=== PATIENT | male | born 1935 | race Caucasian/White ===

== ENCOUNTER 2017-02-22 20:47 | Inpatient (IN) | payer MEDICARE, SELFPAY ==
[2017-02-22] VITALS (10 sets, daily range): BP systolic 163–206; BP diastolic 80–95; PULSE 44–61; RESP 13–16; TEMP 36.6–36.7; O2SAT 94–97; BMI 24.7; BMI 25.0
--- NOTE | 2017-02-22 20:55 | CT_ITS ---
STUDY: CT BRAIN WITHOUT CONTRAST REASON FOR EXAM: Male, 81 years old. CVA RADIATION DOSAGE (If Supplied By Facility): CTDIvol = ( 44.99 ) mGy, DLP = ( 812.98 ) mGycm TECHNIQUE: Transaxial CT imaging of the brain was performed without administration of intravenous contrast material. Individualized dose optimization techniques were used for this CT. COMPARISON: None. FINDINGS: Normal soft tissue structures. Normal calvarium. Mild atrophy and periventricular white matter ischemic changes.. Normal basal ganglia and thalami. Normal brainstem. Normal cerebellum. There is no intracranial hemorrhage. There are no findings of an acute ischemic infarction. Normal visualized paranasal sinuses. CT/Brain/Head without Contrast IMPRESSION: Mild atrophy and periventricular white matter ischemic changes. No evidence for acute bleed. If concern for acute infarct MRI recommended. Electronically Signed: Calvin Friend MD at 21:34 EST , Service support ,
--- NOTE | 2017-02-22 20:55 | EKG12_ITS ---
Test Reason : ALTERED LOC Blood Pressure : / mmHG Vent. Rate : 046 BPM Atrial Rate : 046 BPM P-R Int : 194 ms QRS Dur : 098 ms QT Int : 506 ms P-R-T Axes : 043 036 073 degrees QTc Int : 442 ms Sinus bradycardia Inferior infarct , age undetermined Abnormal ECG Confirmed by JUAN ALBERTO DAVIDSON, CELESTE ([id number]), editor managing newspaper DAISY FOLEY ([id number]) on 02/25/2017 1:48:29 PM Referred By: DR LI Confirmed By:CELESTE AVENDANO MD
--- NOTE | 2017-02-22 20:55 | RAD_ITS ---
STUDY: X-RAY CHEST REASON FOR EXAM: Male, 81 years old. Altered level of consciousness TECHNIQUE: AP portable COMPARISON: None. FINDINGS: Mild bilateral perihilar interstitial thickening but no focal lobar infiltration. There is no demonstrated pleural abnormality. Borderline cardiomegaly. Normal mediastinum and victorino. Normal visualized pulmonary arteries. Tortuous aortic arch and descending thoracic aorta. Normal visualized thoracic spine. Normal visualized ribs, clavicles, and shoulders. There is no demonstrated abnormality of the visualized soft tissue structures of the upper abdomen. RAD/Chest 1 View IMPRESSION: No acute cardiopulmonary pathology. Electronically Signed: Calvin Friend MD at 21:36 EST , Service support ,
[2017-02-22 21:01] LABS: Bedside Glucose 143 mg/dL (70-110)
[2017-02-22 21:02] LABS: Absolute Neutrophil Count 3.8 X10^3/uL (2.0-7.7); Basophil# 0.04 X10^3/uL; Basophil% 0.6 % (0-1); Eosinophil# 0.34 X10^3/uL; Eosinophils% 4.7 % (0-5); Hematocrit 43.5 % (40-54); Hemoglobin 14.3 g/dl (13.0-16.5); Mean Corp Hgb Conc 32.9 g/gl (32-36); Mean Corpuscular Volume 94.2 fL (80-94); Mean Platelet Vol. 10.7 fl (6.2-12.0); Monocyte# 0.44 X10^3/uL; Monocyte% 6.1 % (0-10); Neutrophil # 3.79 X10^3/uL (2.7-7.7); Neutrophil % 52.5 % (47-70); POSITIVE COUNT NO; POSITIVE DIFFERENTIAL NO; POSITIVE MORPHOLOGY NO; Platelet Count 238 K/mm3 (150-450); RBC Distribution Width CV 13.5 % (11.6-14.6); RBC Distribution Width SD 46.3 fl (35.1-43.9); Red Blood Count 4.62 M/mm3 (4.6-6.2); White Blood Count 7.2 K/mm3 (4.4-11.0)
[2017-02-22 21:10] LABS: Prothrombin Time (Protime)PT. 13.2 SECONDS (11.7-14.9)
[2017-02-22 21:11] LABS: Partial Thromboplast Time 30.1 Seconds (24.1-36.2)
[2017-02-22 21:19] LABS: Anion Gap 8 (5-15); BUN 22 mg/dL (7-18); BUN/Creat Ratio 16.7 RATIO (10-20); Calcium,Total 9.3 mg/dL (8.5-10.1); Chloride 106 mmol/L (98-107); Creatinine, Serum 1.32 mg/dL (0.70-1.30); EST Glomerular Filtration Rate 55 mL/min (>60); Est Glom Filt Rate - Afr Amer 67 mL/min (>60); Estimated Creatinine Clearance 45.95 ml/min; Glucose 137 mg/dL (70-110); Potassium 4.1 mmol/L (3.5-5.1); Sodium Level 142 mmol/L (136-145)
--- NOTE | 2017-02-22 21:27 | ED.VISSUMM ---
- ER Visit Summary Date of Service: 02/22/17 Chief Complaint: Confusion History of Present Illness: The patient is a 81 M since to the emergency department confusion. The patient was at a friend's house he apparently was having some nonsensical speech. He left the friend's house and went home. His son called him and realized he was not making any sense on the phone. He went to his house and the patient continued to have this confusion where his speech did not make sense. They deny any weakness. The patient does have a history of prior stroke but had no recurrent deficits. He has been in his normal state of health. He does smoke. Squad was called and the patient is brought in. It is hard to gather any history from the patient given his difficulty with speech. Physical Examination: Vital signs reviewed General: Well-nourished, well-developed Head: Normocephalic, atraumatic Eyes: Pupils equal and reactive, extraocular muscles intact Neck, supple, no lymphadenopathy Heart: Regular rate and rhythm Respiratory: No distress, clear bilaterally Abdomen: Soft, nontender, nondistended, no peritoneal signs Back: Nontender Extremities: Nontender, no edema, no cords Skin: Normal color no rash Neuro: Alert and oriented, no focal or lateralizing deficits, patient does have expressive aphasia with word salad, NIH is 3 Test Results: Head CT shows no acute abnormalities. Screening labs relatively unremarkable. EKG shows sinus bradycardia. Emergency Department Course and Treatment: The patient has difficulties with fluency of speech. It does appear as if he has an expressive aphasia. His NIH is 3. Stroke team was not activated given NIH of 3 and unclear etiology of onset time. Within 30 minutes, his aphasia has mildly improved to give him a score of 2. His CT does not show an acute bleed. Based on the patient's age and market risk factors, I do feel he is can require admission for MRI and further neurologic workup. Patient was discussed with the hospitalist. Treatment Plan: [] Disposition: Admission Impression: 1. Moderate expressive aphasia This note was generated with [employer] dictation software. It may contain incorrect words, spelling, and punctuation that were not noted in review of the chart prior to signing ED Disposition - Plan for ED Patient: Chief Complaint: Alt LOC Referrals: Mike Henriquez DO [Primary Care Provider] -
--- NOTE | 2017-02-22 21:28 | NURSING ---
SON AND DAUGHTER N LAW DON'T KNOW PATIENT'S LAST KNOWN WELL. THEY ALSO DON'T KNOW PATIENT'S ALLERGIES OR MEDICATIONS.
--- NOTE | 2017-02-22 21:44 | NURSING ---
DR. CHILDRESS MADE AWARE OF BP OF 206/81. HE ORDERED APRESOLINE 5 MG.
[2017-02-22] MEDS: Acetaminophen 500 MG Tablet 1000 MG PO (22:08)
--- NOTE | 2017-02-22 22:32 | NURSING ---
DR HILLIARD IN ROOM
--- NOTE | 2017-02-22 23:10 | NURSING ---
DR. HERNANDEZ WAS MADE AWARE THAT HIS BP IS 206/81, AND HE SAID THAT THEY WILL TREAT HIM ON THE FLOOR. DR. NEFF WAS ALSO MADE AWARE AND HE SAID HE PUT ORDERS FOR HIS BP RIGHT NOW TO GIVE ON THE FLOOR.
--- NOTE | 2017-02-22 23:17 | PCM.HP.STD ---
Problem List (1) Aphasia Status: Acute (2) H/O carotid endarterectomy Status: Acute (3) HTN (hypertension) Status: Chronic (4) THELMA (acute kidney injury) Status: Acute History of Present Illness Date of Admission: 02/22/17 Chief Complaint: Aphasia The patient is a 81 year old male w/ h/o carotid endarterectomy, HTN and CVA admitted for aphasia. Pt was at his friend's house when he had some nonsensical speech. He left his friend's house and drove home. His friend called his sister who then called his son. His son called him around 8:00PM and he did not make any sense on the phone. His son went to his house and squad was called to take him to the ED given that he was still confused. He does not comprehend speech. He cannot follow simple direction. He has a h/o prior stroke but no recent deficit. He also has h/o carotid endarterectomy. Nothing appeared to make his confusion better or worse. His confusion was not associated with any other symptoms. Past Medical History Past Medical History (Chronic Problems): Chronic Problems HTN (hypertension) (Chronic) Allergies No Known Allergies Allergy (Verified 02/22/17 21:34) Home Medications: Ambulatory Orders Medication Instructions Recorded NK [NK] 02/22/17 Lives: Alone Smoking Status: Current every day smoker Alcohol: None Drugs: None - *Family History Maternal History Items: No pertinent history Review of Systems Constitutional: Denies: Chills, Fever, Weight Change Eyes: Denies: Blurred vision, Cataracts HEENT: Denies: Head Aches, Sinus Congestion, Sinus Drainage Cardiovascular: Denies: Chest Pain, Palpitations Respiratory: Denies: Cough, Shortness of breath at rest, Sputum production Gastrointestinal: Denies: Abdominal Pain, Nausea, Vomiting Genitourinary: Denies: Dysuria Musculoskeletal: Denies: Joint Pain, Joint Tenderness Skin: Denies: Rash, Wounds Neurological: Reports: Change in Speech, Confusion. Denies: Focal weakness, Numbness, Tingling Psychiatric: Denies: Anxiety, Depression, Homicidal Ideations, Suicidal Ideations Hematologic/ Lymphatic: Denies: Easy Bruising, Easy Bleeding VTE Information - Inpt Only VTE Present on Admission: No VTE Mechan Device Prophylaxis: SCD's VTE Pharm Prophylaxis ordered?: Yes Patient Problems: Active and Suspected Problems Aphasia (Acute) H/O carotid endarterectomy (Acute) THELMA (acute kidney injury) (Acute) - Physical Exam General: Alert, Confused, Disoriented HEENT: Atraumatic, PERRLA, EOMI, Normocephalic Neck: Supple, No JVD, Negative Carotid Bruits Lungs: Clear to auscultation, Normal air movement Cardiovascular: Regular rate, No murmurs Abdomen: Bowel Sounds Present, Soft, Non Tender Extremities: No edema, Capillary Refill Less than 3 Seconds Skin: No rashes, No breakdown Musculoskeletal: No Tenderness to Palpation of Joints or Extremities Neurological: Cranial nerves II-XII grossly intact Psych/Mental Status: Normal Affect, Appropriate Vital Signs Temp Pulse Resp BP Pulse Ox 98.1 F 61 13 206/81 H 96 02/22/17 22:57 02/22/17 23:06 02/22/17 23:06 02/22/17 23:06 02/22/17 23:06 Oxygen Delivery Method Room Air Weight: 80.3 kg Body Mass Index (BMI) 24.7 Finger Stick Blood Glucose 143 Laboratory Tests Past 24 Hrs 02/22/17 02/22/17 02/22/17 20:45 20:45 20:45 WBC 7.2 RBC 4.62 Hgb 14.3 Hct 43.5 MCV 94.2 H MCH 31.0 MCHC 32.9 RDW 13.5 RDW Differential 46.3 H Plt Count 238 MPV 10.7 Immature Gran % (Auto) 0.100 Neut % (Auto) 52.5 Lymph % (Auto) 36.0 [place] % (Auto) 6.1 Eos % (Auto) 4.7 Baso % (Auto) 0.6 Absolute Neuts (auto) 3.8 Absolute Lymphs (auto) 2.60 Total Counted Not Reportable PT 13.2 INR 1.0 APTT 30.1 Sodium 142 Potassium 4.1 Chloride 106 Carbon Dioxide 28.0 Anion Gap 8 BUN 22 H Creatinine 1.32 H Estim Creat Clear Calc 45.95 Est GFR (MDRD) Af Amer 67 Est GFR (MDRD) Non-Af 55 L BUN/Creatinine Ratio 16.7 Glucose 137 H Calcium 9.3 Troponin I < 0.02 POC Glucose 02/22/17 20:55 POC Glucose 143 H Assessment/Plan Active and Suspected Problems Aphasia (Acute) H/O carotid endarterectomy (Acute) THELMA (acute kidney injury) (Acute) 81 year old male w/ h/o carotid endarterectomy, HTN and CVA admitted for aphasia. 1) Expressive aphasia: Pt does not appear to understand simple speech as well. CT unremarkable. Labs unremarkable. Will get MRI in AM. Will get carotid U/S. Will get ECHO. Will get statin and ASA. Will consult neuro. 2) Hypothyroid: Will start synthroid. TSH 9 noted. 3) HTN: Allow permissive HTN. PRN meds given. 4) H/o carotid endarterectomy and CVA: Supportive care. C/w meds. Carotid U/S in AM. 5) Prophylaxis: Heparin.
--- NOTE | 2017-02-22 23:24 | NURSING ---
EXPRESSIVE APHASIA TAWANDA U
--- NOTE | 2017-02-22 23:46 | ECHOD_ITS ---
Reason For Study: TIA/CVA Procedure This was a 2D Doppler, Color Flow transthoracic echocardiogram. Exam performed portable in patient room. Left Ventricle Normal LV size. The estimated ejection fraction is 50 %. Segmental dysfunction with preserved ejection fraction (see wall motion). Mid-anteroseptal : Hypokinetic. Mid-Anterior : Hypokinetic. Septal [place] : Akinetic. Anterior [place] : Hypokinetic. The rest of the wall segments are normal. Right Ventricle Normal RV size. Normal systolic function. Atria Normal left atrium. Normal right atrium. Intact atrial septum. Bubble contrast study negative for right to left interatrial shunt. Mitral Valve Normal mitral valve. Mild-Moderate (1-2+) eccentric mitral valve insufficiency. Tricuspid Valve Normal tricuspid valve. Mild to moderate (1-2+) tricuspid valve insufficiency. Pulmonary artery systolic pressure is 35 mmHg. Aortic Valve Trisinus/trileaflet aortic valve. Mild focal aortic valve thickening. Mild-Moderate (1-2+) eccentric aortic valve insufficiency. Pulmonic Valve Normal pulmonic valve. Great Vessels Mild to moderately dilated aortic root. The pulmonary artery is normal size. Normal inferior vena cava. Pericardium/Pleural No pericardial effusion. Medication Performed a rapid injection of agitated mix of 9 cc saline and 1cc air to assess for atrial septal defect. MMode/2D Measurements & Calculations LVIDd: 3.9 cm IVSd: 2.3 cm LVOT diam: 2.0 cm LVIDs: 2.3 cm LVPWd: 1.7 cm LVOT area: 3.0 cm2 RVDd: 3.2 cm FS: 40.3 % Ao root diam: 3.2 cm LAV(MOD-bp): 77.7 ml LVAd ap4: 35.8 cm2 LAV(MOD-bp) Indexed: 39.1 ml/m2 EDV(MOD-sp4): 107.2 ml LAV(MOD-sp2): 89.2 ml EDV(sp4-el): 112.3 ml LAV(MOD-sp4): 67.8 ml LVAs ap4: 24.6 cm2 ESV(MOD-sp4): 53.5 ml ESV(sp4-el): 55.2 ml EF(MOD-sp4): 50.1 % EF(sp4-el): 50.8 % SV(MOD-sp4): 53.8 ml SV(sp4-el): 57.1 ml LA A4 area: 23.3 cm2 RA A4 area: 16.2 cm2 Time Measurements MV dec time: 0.22 sec Doppler Measurements & Calculations MV E max saba: 108.7 cm/sec MV V2 max: 114.5 cm/sec MV P1/2t max saba: 113.9 cm/sec MV A max saba: 47.1 cm/sec MV max P.2 mmHg MV P1/2t: 147.3 msec MV E/A: 2.3 MV V2 mean: 46.1 cm/sec MV dec slope: 226.5 cm/sec2 MV mean P.1 mmHg MVA(P1/2t): 1.5 cm2 MV V2 VTI: 48.0 cm MVA(VTI): 1.8 cm2 Ao V2 max: 230.0 cm/sec AI max saba: 473.7 cm/sec LV V1 max: 127.3 cm/sec Ao max P.2 mmHg AI max P.7 mmHg LV V1 max P.5 mmHg Ao V2 mean: 141.7 cm/sec AI dec slope: 192.4 cm/sec2 LV V1 mean P.4 mmHg Ao mean P.4 mmHg AI P1/2t: 721.2 msec LV V1 mean: 69.4 cm/sec Ao V2 VTI: 50.5 cm LV V1 VTI: 28.0 cm LYNDON(I,D): 1.7 cm2 LYNDON(V,D): 1.7 cm2 SV(LVOT): 84.5 ml PA V2 max: 91.3 cm/sec TR max saba: 275.9 cm/sec TR max P.5 mmHg Interpretation Summary Normal LV size. The estimated ejection fraction is 50 %. Segmental dysfunction with preserved ejection fraction (see wall motion). Bubble contrast study negative for right to left interatrial shunt. Mild to moderately dilated aortic root. Mild-Moderate (1-2+) eccentric aortic valve insufficiency. Compared to prior study, changes are noted. Ordering Physician: Parvez Fuentes Referring Physician: Mike Henriquez Performed By: Marcos Warren RCS
--- NOTE | 2017-02-22 23:46 | MRI_ITS ---
STUDY: MRI BRAIN WITHOUT CONTRAST REASON FOR EXAM: Male, 81 years old. Slurred speech. TECHNIQUE: Standardized multiplanar fat and water weighted pulse sequences were obtained. COMPARISON: CT of the head dated February 22, 2017. FINDINGS: There is mild cerebral atrophy with widening of the extra-axial spaces and ventricular dilatation. There are a limited number of small white matter hyperintensities, distributed throughout the deep white matter tracts of the cerebral hemispheres, consistent with mild chronic white matter ischemic changes. There is confluent periventricular hyperintensity cloaking the lateral ventricles, consistent with periventricular leukoaraiosis. There is a restricted diffusion present within the left temporal lobe and left parietal lobe consistent with acute infarct. Normal T2* images of the brain without demonstrated susceptibility artifact. There is no demonstrated hemosiderin stain. There are prominent perivascular spaces (PVS) involving the basal ganglia. There are multiple foci of abnormal signal within the thalami that may represent sequela of previous infarcts. The largest is on the left. There is no extra-axial fluid accumulation. Normal flow voids within the major intracranial circulation suggesting patency by spin echo criteria. Normal sella turcica, pituitary gland, infundibular stalk, optic chiasm and hypothalamus. Normal tectal plate and pineal gland. Normal midbrain, james and medulla. Normal cerebellum. There are large basal cisterns. Normal bilateral temporal bones. Normal bilateral internal auditory canals. No demonstrated orbital abnormality, within the constraints of a routine brain study. There is mucoperiosteal inflammatory disease of the paranasal sinuses consistent with mild chronic sinusitis. Normal calvarium and skull base. Normal visualized soft tissue structures. There are degenerative changes of the anterior atlantoaxial articulation. MRI/Brain without Contrast IMPRESSION: 1. Involutional changes of the brain, as described above. 2. Acute left-sided middle cerebral artery territory infarct. N.B. : The above information has been verbally conveyed by Delfina Sparrow MD to NEHA Schwartz RN, Hospital- In-Patient RN, on 02/23/2017 15:43:46 (ET). Electronically Signed: Delfina Sparrow MD at 15:44 EST , Service support , N.B. : The above information has been verbally conveyed by Delfina Sparrow MD to NEHA Schwartz RN, Hospital- In-Patient RN, on 02/23/2017 15:43:46 (ET).
[2017-02-23] VITALS (13 sets, daily range): BP systolic 100–172; BP diastolic 59–71; PULSE 44–73; RESP 14–19; TEMP 36.8–37.1; O2SAT 95–100; BMI 25.1; BMI 25.0
[2017-02-23] MEDS: 0.9% NaCl Peripheral Flush Adult/Peds IV ×2 (00:20→13:04)
[2017-02-23] MEDS: 0.9% Normal Saline 1,000 ML 100 ML IV ×3 (00:23→13:03)
[2017-02-23 00:43] LABS: Thyroid Stim Hormone (TSH) 9.47 uIU/mL (0.358-3.74)
[2017-02-23 00:46] LABS: Bedside Glucose 144 mg/dL (70-110)
[2017-02-23] MEDS: Levothyroxine 25 MCG TABLET PO (04:57)
[2017-02-23 05:49] LABS: Amphetamine Urine VISTA NEGATIVE (<1000 ng/mL); Barbiturate Urine VISTA NEGATIVE (< 200 ng/mL); Benzodiazepine Urine VISTA NEGATIVE (< 200 ng/mL); Cocaine Urine VISTA NEGATIVE (< 300 ng/mL); Ecstacy Urine VISTA NEGATIVE (< 500 ng/mL); Methadone Urine VISTA NEGATIVE (< 300 ng/mL); PCP Urine VISTA NEGATIVE (< 25 ng/mL); THC Urine VISTA NEGATIVE (< 50 ng/mL); Vista UDS pH Range 7
--- NOTE | 2017-02-23 05:55 | MRI_ITS ---
STUDY: MRA OF THE HEAD WITHOUT CONTRAST REASON FOR EXAM: Male, 81 years old. Slurred speech. TECHNIQUE: 3-D [id number] (TOF) imaging was performed with MIPs. The study was performed unenhanced. COMPARISON: MRI the brain dated February 23, 2017. FINDINGS: Normal bilateral petrous carotid arteries. Normal right cavernous carotid artery with a normal supraclinoid bifurcation. 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 Normal right A1 segments of the anterior cerebral artery. There is hypoplastic development of the left A1 segment of the anterior cerebral arteries with an atretic but intact artery. Normal intact anterior communicating artery (ACOM). Normal bilateral A2 segments of the anterior cerebral arteries. There is irregularity of the right M1 and M2 branches with minimal luminal narrowing, suggesting atherosclerotic plaque formation, without an occlusion. There is irregularity of the left M1 and M2 branches with minimal luminal narrowing, suggesting atherosclerotic plaque formation, without an occlusion. There is non-visualization of the right posterior communicating artery (PCOM). There is a persistent origin of the left posterior cerebral artery with absence of the P1 segment of the left posterior cerebral artery. Neither intracranial vertebral artery is well seen. This may be related to small size, decreased blood flow or occlusion. The basilar artery is incompletely visualized suggesting possible partial thrombosis. The visualized intracranial vertebral arteries and basilar artery are also small size. The superior cerebellar arteries are not well seen. Normal bilateral P1, P2 and visualized P3 segments of the posterior cerebral arteries. There is no demonstrated aneurysm of the [place]. There are involutional changes of the brain. MRI/MRA Head ONLY without Contrast IMPRESSION: 1. Apparent partial thrombosis of the basilar artery and intracranial vertebral arteries versus decreased blood flow. 2. 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 Electronically Signed: Delfina Sparrow MD at 15:57 EST , Service support ,
[2017-02-23] MEDS: Aspirin 81 MG TAB.CHEW PO (08:39)
[2017-02-23 09:00] LABS: Absolute Lymphocyte Count 2.92 X10^3/ul (0.83-4.51); Absolute Neutrophil Count 4.4 X10^3/uL (2.0-7.7); Basophil# 0.05 X10^3/uL; Basophil% 0.6 % (0-1); Eosinophil# 0.28 X10^3/uL; Eosinophils% 3.4 % (0-5); Hematocrit 41.8 % (40-54); Lymphocyte # 2.92 X10^3/ul (4.0); Lymphocyte % 35.5 % (19-41); Mean Corp Hgb Conc 33.5 g/gl (32-36); Mean Corpuscular Volume 92.7 fL (80-94); Mean Platelet Vol. 11.1 fl (6.2-12.0); Monocyte# 0.58 X10^3/uL; Neutrophil # 4.38 X10^3/uL (2.7-7.7); Neutrophil % 53.3 % (47-70); Platelet Count 236 K/mm3 (150-450); RBC Distribution Width CV 13.1 % (11.6-14.6); RBC Distribution Width SD 43.6 fl (35.1-43.9); Red Blood Count 4.51 M/mm3 (4.6-6.2); White Blood Count 8.2 K/mm3 (4.4-11.0)
[2017-02-23 09:05] LABS: POSITIVE COUNT NO; POSITIVE DIFFERENTIAL NO; POSITIVE MORPHOLOGY NO
[2017-02-23 09:15] LABS: Anion Gap 9 (5-15); BUN 17 mg/dL (7-18); BUN/Creat Ratio 14.4 RATIO (10-20); Calcium,Total 8.8 mg/dL (8.5-10.1); Chloride 102 mmol/L (98-107); Cholesterol 239 mg/dL (200); Creatinine, Serum 1.18 mg/dL (0.70-1.30); EST Glomerular Filtration Rate 63 mL/min (>60); Est Glom Filt Rate - Afr Amer 76 mL/min (>60); Estimated Creatinine Clearance 49.84 ml/min; Glucose 158 mg/dL (70-110); High Density Lipoprotein 60 mg/dL; Sodium Level 136 mmol/L (136-145); Triglycerides 96 mg/dL; Very Low Density Lipoprotein 19 mg/dL (5-40)
--- NOTE | 2017-02-23 11:10 | MRI_ITS ---
STUDY: MRA NECK WITHOUT CONTRAST REASON FOR EXAM: Male, 81 years old. Slurred speech. TECHNIQUE: Source images were obtained, MIPs were performed. The study was performed unenhanced. Several images are limited by patient motion. COMPARISON: MRA of the head and MRI of the head dated February 23, 2017. FINDINGS: RIGHT CAROTID ARTERIES: The origin of the right common carotid artery is not imaged. The imaged right common carotid artery is generally patent. There is mild atherosclerotic plaque formation with minimal narrowing of the right carotid bulb. Normal origin of the right internal carotid (ICA) artery without a hemodynamically significant stenosis. Normal visualized cervical portion of the right internal carotid artery. Normal origin of the right external carotid artery (ECA). LEFT CAROTID ARTERIES: The origin of left common carotid artery is not imaged. The imaged left common carotid artery otherwise have generally normal course and caliber. There is mild atherosclerotic plaque formation with minimal narrowing of the left carotid bulb. Normal origin of the left internal carotid (ICA) artery without a hemodynamically significant stenosis. Normal visualized cervical portion of the left internal carotid artery. Normal origin of the left external carotid artery (ECA). VERTEBRAL ARTERIES: Both vertebral arteries are small in size but exhibit antegrade blood flow. MRI/MRA Neck without Contrast IMPRESSION: Technically limited study secondary to patient motion without definite hemodynamically significant stenosis. Electronically Signed: Delfina Sparrow MD at 16:19 EST , Service support ,
--- NOTE | 2017-02-23 11:33 | CASEMGMT ---
RN CM attempted to complete broadcast correspondent at this time. Patient is not in room and is currently at MRI. RN CM will attempt again later.
--- NOTE | 2017-02-23 14:30 | PCM.PROGNOTE ---
Patient Problems: Active and Suspected Problems Aphasia (Acute) H/O carotid endarterectomy (Acute) THELMA (acute kidney injury) (Acute) Subjective: Chief complaint: Follow-up after admission for expressive aphasia, incoherent speech and confusion, found to have elevated TSH. Patient seen and examined. No acute events overnight. He is talking out of his head, and coherent speech. He is confused and disoriented. Denied chest pain or shortness of breath. Denies focal weakness. Patient's son was at the bedside and he mentioned that this is all new to him since yesterday. Normally, he is alert and oriented ?3. He is afebrile, heart rate has been in the 50s, blood pressure has been fluctuating, pulse ox is 95% on room air. - Physical Exam General: Alert, No apparent distress, Confused, Disoriented HEENT: Atraumatic, PERRLA Oral: Moist Mucosa, No Gingival or Mucosal Lesions/ Ulcerations Neck: Supple, No JVD, Negative Carotid Bruits, Trachea Midline, Thyroid Normal Size and Texture Lungs: Clear to auscultation, No rhonchi, No wheeze, No rales, Diminished Cardiovascular: Regular rate, Regular Rhythm, Normal S1, Normal S2, PMI Normal, Bradycardic Abdomen: Bowel Sounds Present, Soft, Non Tender, Non-Distended, No Hepato-splenomegaly Extremities: No clubbing, No cyanosis, No edema Skin: No rashes, No breakdown Lymphatic: No Cervical, Supraclavicular, or Inguinal Adenopathy Neurological: Cranial nerves II-XII grossly intact, Motor Exam 5/5 strength throughout, - - Incoherent speech Psych/Mental Status: Flat Affect Vital Signs Temp Pulse Resp BP Pulse Ox 98.5 F 45 L 17 154/71 H 98 02/23/17 13:02 02/23/17 13:02 02/23/17 13:02 02/23/17 13:02 02/23/17 13:02 Oxygen Delivery Method Room Air Weight: 174 lb 9.698 oz Body Mass Index (BMI) 25.0 Intake and Output for Last 24 Hours 02/21/17 02/22/17 02/23/17 23:59 23:59 23:59 Intake Total 1546 / 1546 Output Total 300 / 300 Balance 1246 / 1246 Laboratory Tests Past 24 Hrs 02/23/17 02/23/17 02/23/17 00:13 00:13 05:00 WBC RBC Hgb Hct MCV MCH MCHC RDW RDW Differential Plt Count MPV Immature Gran % (Auto) Neut % (Auto) Lymph % (Auto) [place] % (Auto) Eos % (Auto) Baso % (Auto) Absolute Neuts (auto) Absolute Lymphs (auto) Total Counted Sodium Potassium Chloride Carbon Dioxide Anion Gap BUN Creatinine Estim Creat Clear Calc Est GFR (MDRD) Af Amer Est GFR (MDRD) Non-Af BUN/Creatinine Ratio Glucose Calcium Ammonia 24.0 Troponin I 0.02 Triglycerides Cholesterol LDL Cholesterol VLDL Cholesterol HDL Cholesterol TSH 9.47 H Urine Opiates Screen NEGATIVE Urine Methadone Screen NEGATIVE Ur Barbiturates Screen NEGATIVE Ur Phencyclidine Scrn NEGATIVE Ur Amphetamines Screen NEGATIVE U Methamphetamin-MDMA NEGATIVE U Benzodiazepines Scrn NEGATIVE Urine Cocaine Screen NEGATIVE U Cannabinoids Screen NEGATIVE Ur Drug Screen Comment 02/23/17 02/23/17 08:05 08:05 WBC 8.2 RBC 4.51 L Hgb 14.0 Hct 41.8 MCV 92.7 MCH 31.0 MCHC 33.5 RDW 13.1 RDW Differential 43.6 Plt Count 236 MPV 11.1 Immature Gran % (Auto) 0.200 Neut % (Auto) 53.3 Lymph % (Auto) 35.5 [place] % (Auto) 7.0 Eos % (Auto) 3.4 Baso % (Auto) 0.6 Absolute Neuts (auto) 4.4 Absolute Lymphs (auto) 2.92 Total Counted Not Reportable Sodium 136 Potassium 4.0 Chloride 102 Carbon Dioxide 25.0 Anion Gap 9 BUN 17 Creatinine 1.18 Estim Creat Clear Calc 49.84 Est GFR (MDRD) Af Amer 76 Est GFR (MDRD) Non-Af 63 BUN/Creatinine Ratio 14.4 Glucose 158 H Calcium 8.8 Ammonia Troponin I Triglycerides 96 Cholesterol 239 H LDL Cholesterol 160 H VLDL Cholesterol 19 HDL Cholesterol 60 TSH Urine Opiates Screen Urine Methadone Screen Ur Barbiturates Screen Ur Phencyclidine Scrn Ur Amphetamines Screen U Methamphetamin-MDMA U Benzodiazepines Scrn Urine Cocaine Screen U Cannabinoids Screen Ur Drug Screen Comment POC Glucose 02/23/17 00:09 POC Glucose 144 H Clinical Impression(s) from Imaging Studies Brain CT 02/22/17 20:55 IMPRESSION: Mild atrophy and periventricular white matter ischemic changes. No evidence for acute bleed. If concern for acute infarct MRI recommended. Electronically Signed: Calvni Friend MD at 21:34 EST , Service support , Chest X-Ray 02/22/17 20:55 IMPRESSION: No acute cardiopulmonary pathology. Electronically Signed: Calvin Friend MD at 21:36 EST , Service support , Assessment/Plan Active and Suspected Problems Aphasia (Acute) H/O carotid endarterectomy (Acute) THELMA (acute kidney injury) (Acute) This is an 81 years old male patient admitted because of incoherent speech, expressive aphasia and confusion with concern of TIA versus acute stroke. #1 accident with aphasia/incoherent speech/confusion: CT scan brain showed no acute infarction or hemorrhage. Patient remained confused with incoherent speech, intermittent expressive aphasia. EKG revealed normal sinus rhythm without acute ischemic changes or cardiac arrhythmias. He is on aspirin and statins. Blood pressure stable at this time. It was elevated earlier. Neurology consulted. 2D echocardiogram revealed ejection fraction of 50%, bubble contrast study that was negative for [id number]-me-[id number] shunt, mild to moderate dilated aortic root. MRI brain, MRA of the head and neck ordered, pending. Awaiting neurology recommendations. #2 mild dehydration: Admission creatinine was 1.32 and BUN was 22, has been on IV fluids and it came down to 1.18 today. Improved. #3 Hypertension: Blood pressure was highly elevated on admission. I did came down on the floor. We will allow permissive hypertension. Plan to DC IV labetalol as needed that was ordered. #4 newly diagnosed hypothyroidism: TSH was 9.47. Patient has been bradycardic which can be explained by hypothyroidism. Started on levothyroxine. #5 hyperglycemia: He is not diabetic. Plan: Hemoglobin A1c, Accu-Cheks q. before meals at bedtime. #6 history of CVA: With out significant residual deficit. Plan as above. #7 DVT prophylaxis: Subcu heparin. This note was generated with [employer] software. It may contain incorrect words, spelling, and punctuation that were not noted in checking the note before signing. Code Visit Inpatient E&M: 11894 Subs Hosp L2
--- NOTE | 2017-02-23 14:33 | PN_ITS ---
Patient Problems: Active and Suspected Problems Aphasia (Acute) H/O carotid endarterectomy (Acute) THELMA (acute kidney injury) (Acute) Subjective: Chief complaint: Follow-up after admission for expressive aphasia, incoherent speech and confusion, found to have elevated TSH. Patient seen and examined. No acute events overnight. He is talking out of his head, and coherent speech. He is confused and disoriented. Denied chest pain or shortness of breath. Denies focal weakness. Patient's son was at the bedside and he mentioned that this is all new to him since yesterday. Normally , he is alert and oriented ?3. He is afebrile, heart rate has been in the 50s, blood pressure has been fluctuating, pulse ox is 95% on room air. - Physical Exam General: Alert, No apparent distress, Confused, Disoriented HEENT: Atraumatic, PERRLA Oral: Moist Mucosa, No Gingival or Mucosal Lesions/ Ulcerations Neck: Supple, No JVD, Negative Carotid Bruits, Trachea Midline, Thyroid Normal Size and Texture Lungs: Clear to auscultation, No rhonchi, No wheeze, No rales, Diminished Cardiovascular: Regular rate, Regular Rhythm, Normal S1, Normal S2, PMI Normal, Bradycardic Abdomen: Bowel Sounds Present, Soft, Non Tender, Non-Distended, No Hepato- splenomegaly Extremities: No clubbing, No cyanosis, No edema Skin: No rashes, No breakdown Lymphatic: No Cervical, Supraclavicular, or Inguinal Adenopathy Neurological: Cranial nerves II-XII grossly intact, Motor Exam 5/5 strength throughout, - - Incoherent speech Psych/Mental Status: Flat Affect Vital Signs Temp Pulse Resp BP Pulse Ox 98.5 F 45 L 17 154/71 H 98 02/23/17 13:02 02/23/17 13:02 02/23/17 13:02 02/23/17 13:02 02/23/17 13:02 Oxygen Delivery Method Room Air Weight: 174 lb 9.698 oz Body Mass Index (BMI) 25.0 Intake and Output for Last 24 Hours 02/21/17 02/22/17 02/23/17 23:59 23:59 23:59 Intake Total 1546 / 1546 Output Total 300 / 300 Balance 1246 / 1246 Laboratory Tests Past 24 Hrs 02/23/17 02/23/17 02/23/17 00:13 00:13 05:00 WBC RBC Hgb Hct MCV MCH MCHC RDW RDW Differential Plt Count MPV Immature Gran % (Auto) Neut % (Auto) Lymph % (Auto) [place] % (Auto) Eos % (Auto) Baso % (Auto) Absolute Neuts (auto) Absolute Lymphs (auto) Total Counted Sodium Potassium Chloride Carbon Dioxide Anion Gap BUN Creatinine Estim Creat Clear Calc Est GFR (MDRD) Af Amer Est GFR (MDRD) Non-Af BUN/Creatinine Ratio Glucose Calcium Ammonia 24.0 Troponin I 0.02 Triglycerides Cholesterol LDL Cholesterol VLDL Cholesterol HDL Cholesterol TSH 9.47 H Urine Opiates Screen NEGATIVE Urine Methadone Screen NEGATIVE Ur Barbiturates Screen NEGATIVE Ur Phencyclidine Scrn NEGATIVE Ur Amphetamines Screen NEGATIVE U Methamphetamin-MDMA NEGATIVE U Benzodiazepines Scrn NEGATIVE Urine Cocaine Screen NEGATIVE U Cannabinoids Screen NEGATIVE Ur Drug Screen Comment 02/23/17 02/23/17 08:05 08:05 WBC 8.2 RBC 4.51 L Hgb 14.0 Hct 41.8 MCV 92.7 MCH 31.0 MCHC 33.5 RDW 13.1 RDW Differential 43.6 Plt Count 236 MPV 11.1 Immature Gran % (Auto) 0.200 Neut % (Auto) 53.3 Lymph % (Auto) 35.5 [place] % (Auto) 7.0 Eos % (Auto) 3.4 Baso % (Auto) 0.6 Absolute Neuts (auto) 4.4 Absolute Lymphs (auto) 2.92 Total Counted Not Reportable Sodium 136 Potassium 4.0 Chloride 102 Carbon Dioxide 25.0 Anion Gap 9 BUN 17 Creatinine 1.18 Estim Creat Clear Calc 49.84 Est GFR (MDRD) Af Amer 76 Est GFR (MDRD) Non-Af 63 BUN/Creatinine Ratio 14.4 Glucose 158 H Calcium 8.8 Ammonia Troponin I Triglycerides 96 Cholesterol 239 H LDL Cholesterol 160 H VLDL Cholesterol 19 HDL Cholesterol 60 TSH Urine Opiates Screen Urine Methadone Screen Ur Barbiturates Screen Ur Phencyclidine Scrn Ur Amphetamines Screen U Methamphetamin-MDMA U Benzodiazepines Scrn Urine Cocaine Screen U Cannabinoids Screen Ur Drug Screen Comment POC Glucose 02/23/17 00:09 POC Glucose 144 H Clinical Impression(s) from Imaging Studies Brain CT 02/22/17 20:55 IMPRESSION: Mild atrophy and periventricular white matter ischemic changes. No evidence for acute bleed. If concern for acute infarct MRI recommended. Electronically Signed: Calvin Friend MD at 21:34 EST , Service support , Chest X-Ray 02/22/17 20:55 IMPRESSION: No acute cardiopulmonary pathology. Electronically Signed: Calvin Friend MD at 21:36 EST , Service support , Assessment/Plan Active and Suspected Problems Aphasia (Acute) H/O carotid endarterectomy (Acute) THELMA (acute kidney injury) (Acute) This is an 81 years old male patient admitted because of incoherent speech, expressive aphasia and confusion with concern of TIA versus acute stroke. #1 accident with aphasia/incoherent speech/confusion: CT scan brain showed no acute infarction or hemorrhage. Patient remained confused with incoherent speech, intermittent expressive aphasia. EKG revealed normal sinus rhythm without acute ischemic changes or cardiac arrhythmias. He is on aspirin and statins. Blood pressure stable at this time. It was elevated earlier. Neurology consulted. 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 MRI brain, MRA of the head and neck ordered, pending. Awaiting neurology recommendations. #2 mild dehydration: Admission creatinine was 1.32 and BUN was 22, has been on IV fluids and it came down to 1.18 today. Improved. #3 Hypertension: Blood pressure was highly elevated on admission. I did came down on the floor. We will allow permissive hypertension. Plan to DC IV labetalol as needed that was ordered. #4 newly diagnosed hypothyroidism: TSH was 9.47. Patient has been bradycardic which can be explained by hypothyroidism. Started on levothyroxine. #5 hyperglycemia: He is not diabetic. Plan: Hemoglobin A1c, Accu-Cheks q. before meals at bedtime. #6 history of CVA: With out significant residual deficit. Plan as above. #7 DVT prophylaxis: Subcu heparin. This note was generated with [employer] software. It may contain incorrect words, spelling, and punctuation that were not noted in checking the note before signing. Code Visit Inpatient E&M: 74213 Subs Hosp L2
--- NOTE | 2017-02-23 14:33 | CASEMGMT ---
BIENVENIDO met with patient's son Vicente, his sister Birdie, and some other family members. Patient was sleeping. Patient normally lives alone in a 2 story home. Per his son he does not think patient has any equipment at home. Patient's son said patient is very stubborn. He does not take any medications. They are unsure of d/c plan at this time. Family has been discussing someone going and staying with him for awhile. BIENVENIDO told them BIENVENIDO and BRIANNA RYAN will follow and assist with d/c planning. D/C plan: undetermined Ly PEARL MSW
[2017-02-23 15:23] LABS: Hemoglobin A1c 9.3 % (4.2-6.3)
[2017-02-23 17:20] LABS: Bedside Glucose 196 mg/dL (70-110)
--- NOTE | 2017-02-23 17:35 | NURSING ---
REPORT GIVEN TO RECEIVING RN, BIANCA, AT [facility]. BIANCA TO CALL BACK WHEN ROOM IS BEING CLEANED. ELLIOTT REED
--- NOTE | 2017-02-24 13:02 | PCM.DC.SUM ---
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 #4 expressive aphasia/incoherent speech. - Secondary Discharge Diagnosis Chronic Problems HTN (hypertension) (Chronic) Hospital Course and Treatment Imaging Results: Clinical Impression(s) from Imaging Studies Brain CT 02/22/17 20:55 IMPRESSION: Mild atrophy and periventricular white matter ischemic changes. No evidence for acute bleed. If concern for acute infarct MRI recommended. Electronically Signed: Calvin Friend MD at 21:34 EST , Service support , Chest X-Ray 02/22/17 20:55 IMPRESSION: No acute cardiopulmonary pathology. Electronically Signed: Calvin Friend MD at 21:36 EST , Service support , Brain MRI 02/22/17 23:46 IMPRESSION: 1. Involutional changes of the brain, as described above. 2. Acute left-sided middle cerebral artery territory infarct. N.B. : The above information has been verbally conveyed by Delfina Sparrow MD to NEHA Schwartz RN, Hospital- In-Patient RN, on 02/23/2017 15:43:46 (ET). Electronically Signed: Delfina Sparrow MD at 15:44 EST , Service support , N.B. : The above information has been verbally conveyed by Delfina Sparrow MD to NEHA Schwartz RN, Hospital- In-Patient RN, on 02/23/2017 15:43:46 (ET). Head MRA 02/23/17 05:55 IMPRESSION: 1. Apparent partial thrombosis of the basilar artery and intracranial vertebral arteries versus decreased blood flow. 2. 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 Electronically Signed: Delfina Sparrow MD at 15:57 EST , Service support , Neck MRA 02/23/17 11:10 IMPRESSION: Technically limited study secondary to patient motion without definite hemodynamically significant stenosis. Electronically Signed: Delfina Sparrow MD at 16:19 EST , Service support , Operations: None Procedures: 2-D Echocardiogram, EKG Summary of Care Provided: The patient is a 81 year old M admitted because of confusion, incoherent speech and expressive aphasia and he was found to have acute left MCA infarction. Initial CT scan of the brain showed no acute infarction or hemorrhage. MRI of the brain revealed acute left MCA infarct. 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 MRA of the head revealed acute left MCA infarct. 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 Patient was treated with aspirin and statins. Neurology consulted and recommended transfer to tertiary care center for further management and treatment of the partial thrombosis of the basilar artery. Apart from expressive aphasia, patient had no motor focal deficit. His blood pressure was stable, slightly elevated. Routine blood work was unremarkable. EKG revealed normal sinus rhythm without acute ischemic changes. We will not able to assess the size of the left MCA stroke and that is why we did not start patient on IV anticoagulation. Neurology recommended to hold off using IV heparin at this time. I called the transfer center of [facility] for transfer and they accepted patient. Patient transferred to see [facility] neuro ICU in a stable medical condition. Home Medications: Medications to take at Discharge NK [NK] 02/22/17 Primary Care Physician: Mike Henriquez DO [Primary Care Provider] - Disposition: Acute care Hospital Minutes spent on discharge:: 34 Patient Condition:: Stable Meaningful Use Info Meaningful Use Diagnoses (Choose all that apply): Ischemic CVA - CVA Therapy Assessed for PT,OT and/or ST?: Yes - Ischemic Stroke Antithrombotic order at d/c?: Yes Dx of Atrial fib/flutter?: No Anticoagulant at discharge?: No Reason anticoagulant not ordered: Treatment not Indicated Statins at discharge?: Yes Primary Dx Acute Ischemic CVA?: Yes IV tPA ordered during stay?: No Reason IV t-PA not ordered: Treatment not Indicated Code Visit Inpatient E&M: 16258 Disch Hosp
--- NOTE | 2017-02-24 13:09 | DS.PCM_ITS ---
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 #4 expressive aphasia/incoherent speech. - Secondary Discharge Diagnosis Chronic Problems HTN (hypertension) (Chronic) Hospital Course and Treatment Imaging Results: Clinical Impression(s) from Imaging Studies Brain CT 02/22/17 20:55 IMPRESSION: Mild atrophy and periventricular white matter ischemic changes. No evidence for acute bleed. If concern for acute infarct MRI recommended. Electronically Signed: Calvin Friend MD at 21:34 EST , Service support , Chest X-Ray 02/22/17 20:55 IMPRESSION: No acute cardiopulmonary pathology. Electronically Signed: Calvin Friend MD at 21:36 EST , Service support , Brain MRI 02/22/17 23:46 IMPRESSION: 1. Involutional changes of the brain, as described above. 2. Acute left-sided middle cerebral artery territory infarct. N.B. : The above information has been verbally conveyed by Delfina Sparrow MD to NEHA Schwartz RN, Hospital- In-Patient RN, on 02/23/2017 15:43:46 (ET). Electronically Signed: Delfina Sparrow MD at 15:44 EST , Service support , N.B. : The above information has been verbally conveyed by Delfina Sparrow MD to NEHA Schwartz RN, Hospital- In-Patient RN, on 02/23/2017 15:43:46 (ET). Head MRA 02/23/17 05:55 IMPRESSION: 1. Apparent partial thrombosis of the basilar artery and intracranial vertebral arteries versus decreased blood flow. 2. 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 Electronically Signed: Delfina Sparrow MD at 15:57 EST , Service support , Neck MRA 02/23/17 11:10 IMPRESSION: Technically limited study secondary to patient motion without definite hemodynamically significant stenosis. Electronically Signed: Delfina Sparrow MD at 16:19 EST , Service support , Operations: None Procedures: 2-D Echocardiogram, EKG Summary of Care Provided: The patient is a 81 year old M admitted because of confusion, incoherent speech and expressive aphasia and he was found to have acute left MCA infarction. Initial CT scan of the brain showed no acute infarction or hemorrhage. MRI of the brain revealed acute left MCA infarct. 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 MRA of the head revealed acute left MCA infarct. 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 Patient was treated with aspirin and statins. Neurology consulted and recommended transfer to tertiary care center for further management and treatment of the partial thrombosis of the basilar artery. Apart from expressive aphasia, patient had no motor focal deficit. His blood pressure was stable, slightly elevated. Routine blood work was unremarkable. EKG revealed normal sinus rhythm without acute ischemic changes. We will not able to assess the size of the left MCA stroke and that is why we did not start patient on IV anticoagulation. Neurology recommended to hold off using IV heparin at this time. [place] [facility] [place] Patient transferred to see [facility] neuro ICU in a stable medical condition. Home Medications: Medications to take at Discharge NK [NK] 02/22/17 Primary Care Physician: Mike Henriquez DO [Primary Care Provider] - Disposition: Acute care Hospital Minutes spent on discharge:: 34 Patient Condition:: Stable Meaningful Use Info Meaningful Use Diagnoses (Choose all that apply): Ischemic CVA - CVA Therapy Assessed for PT,OT and/or ST?: Yes - Ischemic Stroke Antithrombotic order at d/c?: Yes Dx of Atrial fib/flutter?: No Anticoagulant at discharge?: No Reason anticoagulant not ordered: Treatment not Indicated Statins at discharge?: Yes Primary Dx Acute Ischemic CVA?: Yes IV tPA ordered during stay?: No Reason IV t-PA not ordered: Treatment not Indicated Code Visit Inpatient E&M: 91341 Disch Hosp
== END 2017-02-23 19:38 | disposition short-term general hospital (02) | DRG 66 ==
LOC: ED 21:34 → PCU 23:30
PROVIDERS: Admitting Provider Internal Medicine; Emergency Provider Emergency Medicine; Family Provider Family Medicine; PCP Family Medicine; Visit Provider Hospitalist
DX: I63.512 Cerebral infarction due to unspecified occlusion or stenosis of left middle cerebral artery (principal); R47.01 Aphasia; E86.0 Dehydration; I65.1 Occlusion and stenosis of basilar artery; F17.200 Nicotine dependence, unspecified, uncomplicated; I10 Essential (primary) hypertension; E03.9 Hypothyroidism, unspecified; R73.9 Hyperglycemia, unspecified; R29.703 NIHSS score 3; Z86.73 Personal history of transient ischemic attack (TIA), and cerebral infarction without residual deficits; I65.22 Occlusion and stenosis of left carotid artery; I77.819 Aortic ectasia, unspecified site
CPT/HCPCS: 36415; 70450; 70544; 70547; 70551; 71045; 80048; 80061; 80307; 82140; 82962; 83036; 84443; 84484; 85025; 85610; 85730; 92523; 93005; 93306; 97166; 97802; 99285; J7030; J7040; A4216

== ENCOUNTER → 2017-04-04 16:39 | Outpatient (CLI) | payer MEDICARE, SELFPAY ==
[2017-04-04 16:45] LABS: Mucous, Urine 0 SEEN /hpf (<or=2+); Squamous Epithelial Cells - UA 0 SEEN /hpf (0-5); White Blood Cells 0 SEEN /hpf (0-5)
--- NOTE | 2017-04-04 17:07 | RAD_ITS ---
STUDY: X-RAY - ABDOMEN/PELVIS REASON FOR EXAM: Male, 81 years old. Left upper quadrant pain TECHNIQUE: 2 views COMPARISON: None. FINDINGS: Normal visualized lung bases. There is an unremarkable bowel gas pattern. Mild colonic fecal retention. There is no demonstrated free abdominal air. The visualized liver, spleen and kidneys are grossly normal in size and morphology. Normal soft tissue structures. Mild degenerative vertebral changes. RAD/Abdomen Single View IMPRESSION: Mild fecal retention. No sign of bowel obstruction. Electronically Signed: Krish Rainey DO at 23:10 EST Tel [phone], Service support ,
[2017-04-04 17:43] LABS: Color, Urine Yellow (Yellow); Glucose, Dipstick Normal (Normal); Ketone-Dipstick 5 mg/dl (Negative); Leukocyte Esterase-Dipstick Negative /ul (Negative); Nitrite-Dipstick Negative (Negative); Occult Blood-Urine 50 /ul (Negative); Protein-Dipstick 30 mg/dl (Negative); Specific Gravity, Urine 1.015 (1.002-1.030); Urine Bilirubin Dipstick Negative (Negative); Urine Clarity Clear (Clear); Urine Urobilinogen 1 mg/dl (Normal)
[2017-04-04 17:51] LABS: ALB/GLOB Ratio 0.9 RATIO (0.9-2.4); AST(SGOT) 26 U/L (15-37); Absolute Lymphocyte Count 2.87 X10^3/ul (0.83-4.51); Absolute Neutrophil Count 3.8 X10^3/uL (2.0-7.7); Alanine Aminotransfer ALT/SGPT 29 U/L (16-61); Albumin, Serum 3.7 g/dL (3.2-5.0); Alkaline Phosphatase 86 U/L (45-117); Anion Gap 7 (5-15); BUN 24 mg/dL (7-18); BUN/Creat Ratio 16.9 RATIO (10-20); Basophil# 0.04 X10^3/uL; Basophil% 0.5 % (0-1); Calcium,Total 9.1 mg/dL (8.5-10.1); Chloride 102 mmol/L (98-107); Creatinine, Serum 1.42 mg/dL (0.70-1.30); EST Glomerular Filtration Rate 51 mL/min (>60); Eosinophil# 0.34 X10^3/uL; Eosinophils% 4.4 % (0-5); Est Glom Filt Rate - Afr Amer 61 mL/min (>60); Globulin 4.1 g/dL (2.2-4.2); Glucose 149 mg/dL (74-106); Hematocrit 40.8 % (40-54); Hemoglobin 13.4 g/dl (13.0-16.5); Lipase 157 U/L (73-393); Lymphocyte # 2.87 X10^3/ul (4.0); Mean Corp Hgb Conc 32.8 g/gl (32-36); Mean Corpuscular Hgb 30.6 pg (27.0-32.0); Mean Corpuscular Volume 93.2 fL (80-94); Mean Platelet Vol. 11.4 fl (6.2-12.0); Monocyte# 0.72 X10^3/uL; Monocyte% 9.3 % (0-10); Neutrophil # 3.77 X10^3/uL (2.7-7.7); Neutrophil % 48.7 % (47-70); Platelet Count 247 K/mm3 (150-450); Potassium 4.2 mmol/L (3.5-5.1); Protein, Total 7.8 g/dL (6.4-8.2); RBC Distribution Width SD 43.1 fl (35.1-43.9); Red Blood Count 4.38 M/mm3 (4.6-6.2); Sodium Level 139 mmol/L (136-145); White Blood Count 7.8 K/mm3 (4.4-11.0)
[2017-04-04 17:54] LABS: POSITIVE COUNT NO; POSITIVE DIFFERENTIAL NO; POSITIVE MORPHOLOGY NO
[2017-04-04 18:20] LABS: Bacteria RARE /hpf (None Seen); Red Blood Cells-Urine 5-10 SEEN /hpf (0-5)
== END ==
PROVIDERS: Family Provider Family Medicine; PCP Family Medicine; Visit Provider Family Medicine
DX: R10.12 Left upper quadrant pain (principal); I67.9 Cerebrovascular disease, unspecified; I69.391 Dysphagia following cerebral infarction; I69.315 Cognitive social or emotional deficit following cerebral infarction
CPT/HCPCS: 36415; 74018; 80053; 81001; 83690; 85025; 92507

== ENCOUNTER → 2017-04-17 13:00 | Outpatient (CLI) | payer MEDICARE, SELFPAY ==
--- NOTE | 2017-04-17 13:17 | CT_ITS ---
STUDY: CT ABDOMEN AND PELVIS WITH CONTRAST REASON FOR EXAM: Male, 81 years old. Abdominal pain, mid to left side. RADIATION DOSAGE (If Supplied By Facility): CTDIvol = ( 18.70 ) mGy, DLP = ( 910.57 ) mGycm TECHNIQUE: Transaxial images were obtained from the dome of the diaphragm to the symphysis pubis without oral contrast. 75mL ml of Isovue 300 contrast was administered. Sagittal and coronal images were reconstructed. Individualized dose optimization techniques were used for this CT. COMPARISON: Two AP supine views of the abdomen and pelvis April 04, 2017 FINDINGS: Mild to moderate elevation of the right diaphragm, etiology uncertain. Dependent changes in the inferior lung bases. The heart size is upper normal. There are calcifications at the aortic valve, and mild calcific plaquing of the distal descending thoracic aorta. Normal liver. The patent portal vein diameter is 15.5 mm. The gallbladder is contracted. Normal spleen. Normal pancreas. Normal bilateral adrenal glands. 3.5 x 2.05 x 1.9 cm cyst at the midpole of the right kidney. A 10 x 12 x 15 mm cortical cyst is seen in the anterior midpole. Rounded 9 mm low-density in the anterior left mid pole may be a cyst or small angiomyolipoma. No hydronephrosis. Normal visualized stomach. Normal small intestine. Normal colon. There is non-visualization of the appendix. There is diffuse, partially calcified atherosclerotic plaquing of the abdominal aorta and iliofemoral arteries, without a demonstrated aneurysm. Normal inferior vena cava. Normal retroperitoneum. Normal urinary bladder. The prostate gland is 5.5 x 4.35 x 4.0 cm (R51 cc), mildly indenting the floor of the urinary bladder. Normal abdominal wall. There are diffuse degenerative changes of the visualized spine, including posterior endplate osteophyte formation at L3-4 and L4-5. There are multiple invaginations of the opposing L4-5 vertebral endplates, consistent with benign Schmorl's nodes. One of the largest is 13 mm in diameter. Degenerative changes also seen in the bilateral sacroiliac joints and hips. CT/Abdomen/Pelvis WITH Contrast IMPRESSION: 1. No clear explanation for the patient's complaints. 2. The bowel is unremarkable without signs of obstruction. The appendix is not visualized. 3. Right renal cortical cysts, as well as 9 mm cyst or angiomyolipoma in the mid pole of the left kidney. No hydronephrosis. 4. Mildly enlarged prostate gland. 5. Diffuse, partially calcified atherosclerotic plaquing of the abdominal aorta and iliofemoral arteries. No demonstrated aneurysm. Calcifications also noted in the aortic valve. 6. Mild to moderate elevation of the right diaphragm, etiology uncertain. 7. Degenerative changes of the spine and pelvis, as described. Electronically Signed: Taz Velazquez MD at 19:03 EST , Service support ,
[2017-04-17 15:56] LABS: ALB/GLOB Ratio 0.8 RATIO (0.9-2.4); AST(SGOT) 34 U/L (15-37); Alanine Aminotransfer ALT/SGPT 40 U/L (16-61); Albumin, Serum 3.4 g/dL (3.2-5.0); Alkaline Phosphatase 83 U/L (45-117); Amylase 65 U/L (25-115); Anion Gap 9 (5-15); BUN 25 mg/dL (7-18); BUN/Creat Ratio 17.9 RATIO (10-20); Chloride 101 mmol/L (98-107); EST Glomerular Filtration Rate 51 mL/min (>60); Est Glom Filt Rate - Afr Amer 62 mL/min (>60); Glucose 293 mg/dL (74-106); Lipase 146 U/L (73-393); Potassium 4.3 mmol/L (3.5-5.1); Protein, Total 7.4 g/dL (6.4-8.2); Sodium Level 139 mmol/L (136-145)
== END ==
PROVIDERS: Visit Provider Internal Medicine
DX: R10.12 Left upper quadrant pain (principal); I67.9 Cerebrovascular disease, unspecified; I69.391 Dysphagia following cerebral infarction; I69.315 Cognitive social or emotional deficit following cerebral infarction
CPT/HCPCS: 36415; 74177; 80053; 82150; 83690; 92507; Q9967

== ENCOUNTER → 2017-06-24 14:18 | Outpatient (CLI) | payer MEDICARE, SELFPAY ==
[2017-06-24 15:09] LABS: Color, Urine Yellow (Yellow); Glucose, Dipstick Normal (Normal); Ketone-Dipstick Negative (Negative); Leukocyte Esterase-Dipstick Negative /ul (Negative); Nitrite-Dipstick Negative (Negative); Occult Blood-Urine Negative /ul (Negative); Protein-Dipstick 30 mg/dl (Negative); Specific Gravity, Urine 1.025 (1.002-1.030); Urine Bilirubin Dipstick Negative (Negative); Urine Clarity Clear (Clear); Urine Urobilinogen 1 mg/dl (Normal)
[2017-06-24 15:15] LABS: Red Blood Cells-Urine 0-5 SEEN /hpf (0-5); Squamous Epithelial Cells - UA 0-5 SEEN /hpf (0-5); White Blood Cells 0-5 SEEN /hpf (0-5)
[2017-06-24 15:16] LABS: Bacteria 1+ /hpf (None Seen); Hyaline Cast 0-5 SEEN /lpf (0-5); Mucous, Urine 1+ /hpf (<or=2+)
[2017-06-24 15:17] LABS: Absolute Lymphocyte Count 2.33 X10^3/ul (0.83-4.51); Absolute Neutrophil Count 4.1 X10^3/uL (2.0-7.7); Basophil# 0.06 X10^3/uL; Basophil% 0.8 % (0-1); Eosinophil# 0.19 X10^3/uL; Eosinophils% 2.6 % (0-5); Hematocrit 38.6 % (40-54); Hemoglobin 13.2 g/dl (13.0-16.5); Lymphocyte # 2.33 X10^3/ul (4.0); Lymphocyte % 31.8 % (19-41); Mean Corp Hgb Conc 34.2 g/gl (32-36); Mean Corpuscular Hgb 30.7 pg (27.0-32.0); Mean Corpuscular Volume 89.8 fL (80-94); Mean Platelet Vol. 11.1 fl (6.2-12.0); Monocyte# 0.68 X10^3/uL; Monocyte% 9.3 % (0-10); Neutrophil # 4.05 X10^3/uL (2.7-7.7); Neutrophil % 55.2 % (47-70); Platelet Count 219 K/mm3 (150-450); RBC Distribution Width CV 13.6 % (11.6-14.6); RBC Distribution Width SD 44.2 fl (35.1-43.9); White Blood Count 7.3 K/mm3 (4.4-11.0)
[2017-06-24 15:18] LABS: Differential Indicated SCAN CRITERIA MET; POSITIVE COUNT NO; POSITIVE DIFFERENTIAL NO; POSITIVE MORPHOLOGY YES
[2017-06-24 15:45] LABS: ALB/GLOB Ratio 0.8 RATIO (0.9-2.4); AST(SGOT) 25 U/L (15-37); Alanine Aminotransfer ALT/SGPT 23 U/L (16-61); Albumin, Serum 3.2 g/dL (3.2-5.0); Alkaline Phosphatase 65 U/L (45-117); Anion Gap 9 (5-15); BUN 37 mg/dL (7-18); Calcium,Total 8.8 mg/dL (8.5-10.1); Chloride 104 mmol/L (98-107); Creatinine, Serum 1.85 mg/dL (0.70-1.30); EST Glomerular Filtration Rate 37 mL/min (>60); Est Glom Filt Rate - Afr Amer 45 mL/min (>60); Globulin 4.1 g/dL (2.2-4.2); Glucose 139 mg/dL (74-106); Protein, Total 7.3 g/dL (6.4-8.2); Sodium Level 136 mmol/L (136-145); Thyroid Stim Hormone (TSH) 6.21 uIU/mL (0.358-3.74)
[2017-06-24 16:07] LABS: Anisocytosis RARE; Platelet Estimate ADEQUATE (ADEQ)
== END ==
PROVIDERS: Family Provider Family Medicine; PCP Family Medicine; Visit Provider Internal Medicine
DX: R53.1 Weakness (principal); R04.2 Hemoptysis
CPT/HCPCS: 36415; 80053; 81001; 84443; 85025

== ENCOUNTER → 2017-06-28 11:04 | Outpatient (CLI) | payer MEDICARE, SELFPAY ==
--- NOTE | 2017-06-28 11:10 | RAD_ITS ---
STUDY: X-RAY CHEST REASON FOR EXAM: Male, 82 years old. Blood-tinged sputum. TECHNIQUE: PA and lateral views of the chest. COMPARISON: 02/22/2017. FINDINGS: The lungs are clear and expanded. There is no demonstrated pleural abnormality. Normal size heart. Normal mediastinum and victorino. Normal visualized pulmonary arteries. There is atherosclerotic tortuosity of the aortic arch and descending thoracic aorta. There are degenerative changes of the visualized thoracic spine. There is mild degenerative osteoarthritis of the bilateral shoulders. There is no demonstrated abnormality of the visualized soft tissue structures of the upper abdomen. RAD/Chest PA and Lateral IMPRESSION: No active pulmonary disease. Electronically Signed: Orestes Howard MD at 8:36 EDT Tel , Service support ,
== END ==
PROVIDERS: Family Provider Internal Medicine; PCP Internal Medicine; Visit Provider Internal Medicine
DX: R04.2 Hemoptysis (principal)
CPT/HCPCS: 71046

== ENCOUNTER 2017-07-18 09:30 | Outpatient (RCR) | payer MEDICARE, SELFPAY ==
--- NOTE | 2017-03-27 13:18 | HP.SP.AD ---
History - History Date of Eval: 03/26/17 Medical Diagnosis (from RX): CVA Date of Onset of Diagnosis: 02-22-17 Previous speech therapy: No Results: Home health but very limited to dc from . Other Relevant Medical History/Diagnoses/Surgery: PRevious CVA five years ago. A fib, DM2, HTN, sleep apnea, Smoking Status: Former smoker Hx Smoking: Yes - off and on Hx Tobacco Use: Yes - Pain Is pain an issue with your current prescribed condition?: No - Personal Right Hearing Abillity: Hard of Hearing Left Hearing Abillity: Hard of Hearing Patients Living Arrangements: son lives with him but not often avaliable per [facility] Patient Allergies - Allergies Allergies No Known Allergies Allergy (Verified 02/22/17 21:34) Objective Cog/Ling/Com - Test Administered Lksyclmkz-Nassqbodkf-Onimxudqeqrte Assessment Administered: Yes Ygxfuxcui-Saiwsrowba-Esykoppnicgat Assessment: Cognitive Linguistic skills were evaluated using patient/family interview, skilled observation and informal evaluation through tasks completed by the patient. - Orientation Orientation: Person - Identification Body parts/objects: Severe - Answer Yes/No Questions Simple: Severe Complex: Severe - Follows Commands 1 Step: Severe - Automatic Sequences Automatic Sequences: WFL - Repetition Words: Severe - Naming Responsive naming: Severe - Conversational Tasks Conversational Tasks: Severe Comments: There are fluent sentences intermixed with random paraphasias. - Comments Comments: OVerall he is only able to be understood aproximately 30% of the time. - Oral Reading Words: Severe Phrases: Severe Comments: Patient is unable to read anything at this time. Plan - Plan Plan: Speech therapy is warranted for severe receptive and expressive aphasia which is affecting his ability to communicate wants and needs effectively. - Recommendations Treatment Warranted: Yes - Frequency Frequency: 2x /Week Duration: 2 Months Visits in this POC: 16 - Prognosis Prognosis: Good - Goals that are Established: Determination:: Goals will be added/modified as deemed necessary and appropriate. Therapy will be discontinued when results of re-evaluation indicate therapy is no longer needed or lack of progress has been documented. - Goal #1-5 Goal #1: Bradley will follow 1 step commands on 4/5 trials with minimal cues. Goal #2: Bradley will answer basic yes/ no questions on 4/5 trials with minimal cues. Goal #3: Bradley will label objects/pictures on 4/5 trials with minimal cues. Education - Patient has Indicated that the Following Identified Educational Needs: None The Patient has indicated that they have no educational or learning abilities that may effect their care.: Yes - Patient Instruction Patient Education: Diagnosis, Treatment Plan, Goals, Safety Precautions Person Taught: Patient, Family Teaching Method: Discussion Response to teaching: Verbalize understanding
--- NOTE | 2017-03-27 14:56 | HP.OTEVAL_ITS ---
Patient's Visit Information SILVESTRE BARTH is a 81 year old M, referred to Occupational Therapy by Mike Henriquez DO,, with a diagnosis of CVA. Date of Evaluation: 03/27/17 Occupational Therapist: Michelle Silva - Subjective Subjective: Pt seen for initial occupational therapy evaluation after suffering CVA 02/22/17. Pt demonstrates global aphasia. His son lives with him at home and his sisters have been checking in on him daily since CVA. Prior, pt was independent with all BADLs/IADLs and still driving. He is a very active man. Pt has been recieving home health OT/PT/ST. - Objective Objective/Observation: Pt demo global aphasia and increased frustration that he is unable to communicate with therapist. Pt demo good upper body strength and ability to complete BADLs. Pt demo decreased safety and use of energy conservation and compensatory strategies to assist w/ IADLs. - ROM ROM Comments: WFL all joints BUE - Strength Shoulder: 4+/5 Elbow: 4+/5 Forearm: 4+/5 Wrist: 4+/5 Adult Crossing Guard: R 100#, L 100# Strength Comments: Pt demo good BUE strength - Edema Other: No edema noted - Sensation Sensation Comments: Pt states no numbness or tingling. - Visual/Perceptual Skills Visual Field Cut: No Left Neglect: No Copies Shapes Correctly: No Comments: Pt demo good peripheral vision. Pt states unable to read a book or paper at this time. - Cognitive Skills Follows Directions: No Oriented to (Check all that apply): Place - Transfers Transfers: Independent with transfers - Stroke Specific Quality of Life Total SS-QOL Score: 153 - Goals Goal:: Pt will complete simple meal prep tasks independently with good safety awareness and use of compensatory strategies as needed. Goal:: Pt will be able to complete simple housekeeping tasks independently with good safety awareness and use of adaptive tech, compensatory strategies and energy conservation tech. Goal:: pt and family will be educated on safety concerns adaptive tech, energy conservation tech, compensatory strategies to assist w/ IADLs with good understanding and demo 100%x. - Rehabilitation General Assessment: Pt demo good upper body strength and ability to complete BADLs. Pt demo decreased safety and use of energy conservation and compensatory strategies to assist w/ IADLs with new diagnosis of CVA. Pt would benefit from occupational therapy services to increase safety and independence with IADLs with use of adaptive tech, energy conservation tech, and compensatory strategies. Rehabilitation Potential: Good - Anticipated Interventions Anticipated Interventions: Neuro Reeducation, Visual/Perceptual Skills, ADL Training, Caregiver Training - Visit Plan Frequency: 1x/Week Duration: 4 Weeks General Plan: increase safety with IADLs and educate on energy conservation tech , adaptive techniques and compensatory strategies TEXT: Thank you for the opportunity to evaluate your patient. For Medicare and Medicare HMO plans, please review the plan of care and approve it. It will need to be FAXED BACK to us at [phone] for Medicare purposes. Please let me know if there are questions or concerns regarding this plan of care. Physician Signature: Date:
--- NOTE | 2017-04-10 09:12 | HP.PTEVAL_ITS ---
Patient's Visit Information SILVESTRE BARTH is a 81 year old M referred to Physical Therapy by DO SHAD Jackson with a diagnosis of CVA. Date of Evaluation: 04/03/17 Physical Therapist: Job Clarke - Visit Plan Frequency: 1x/Week Duration: 1 Week Plan: Pt. will be DC to HEP at this point in time. Pt. is at expected levels of functional mobility. He has difficulty with communication, but ST is working with pt. at this point in time. - Subjective Subjective: Pt. is here today for his initial evaluation with diagnosis of CVA. Pt's injury occured on 02/22/17. Pt demonstrates global aphasia. His son lives with him at home and his sisters have been checking in on him daily since CVA. Prior, pt was independent with all BADLs/IADLs and still driving. He is a very active man. Pt's friend was able to relay this information, but pt. was not able to correctly verbilze this date. Friend had to leave that this point in time. Pt' family reports no falls and reports he is very active currently at home. Pt. is currently recieving OT and ST services as well. - Objective POSTURE: Pt. has generalized flexed posture, rounded shoulders with FH. Pt. is able to improve with TCing. Pt. has difficulty time following verbal instructions. PALPATION: Pt. has no pain with all palpation throughout bilateral LEs or lumbar spine. NEUROLOGICAL: Pt. has normal sensation throughout bilateral LEs. Pt. has no clonus with testing this date. Pt. is able to rise on heels and toes without muscle weakness, but does need balance aid to maintain stability. ROM: Pt. has normal ankle/knee/hip ROM bilaterally. Pt. has tight HS bilaterall. Pt. has slight tightness in bilateral G/S complex. MMT : RLE- ankle- 5/5 throughout; knee- ext 5-/5, flexion 5-/5; hip- flexion 4+/5, abd 4+/5, ext 4+/5. LLE- ankle 5-/5 throughout; knee- 5-/5 throughout; hip- flexion 4+/5, abd 4+/5, ext 4+/5. Core strength- poor+. GAIT: Pt. ambulates 3000ft. without AD with normal step length. Pt had no LOB or deviation from path. STAIRS: Pt. negotiated with reciprocal pattern with 1 HR without signs of functional weakness. BALANCE: TUG- 9.8 sec without AD. VCing to exercises. 5 rep sit<>stand test 8.2sec without UEs. - Balance Scores Functional Gait Assessment Score: 25 % Disability: 16.6700 - Rehabilitation Potential Physical Therapy Diagnosis: Pt. has slight weakness in LEs, but balance is at an expected level. Pt./family and my self agree that pt. does not require PT at this time. He was given exercise to complete at home for BLE strengthening. Rehabilitation Potential: Excellent - Anticipated Interventions Patient/Client Instruction: Educate patient on: Condition, Plan of Care, Risk Factors, Benefits of Fitness Program For the Purpose of:: To improve decision making, To facilitate caregiver knowledge, To improve self management, To prevent re-injury, To improve ability to perform tasks related to life management, To improve tolerance to ADL's Thank you for the opportunity to evaluate your patient. For Medicare and Medicare HMO plans, please review the plan of care and approve it. It will need to be FAXED BACK to us at [phone] for Medicare purposes. Please let me know if there are questions or concerns regarding this plan of care. Physician Signature: Date:
--- NOTE | 2017-04-11 16:53 | HP.OTDCSUM_ITS ---
HP - OT D/C Summary It has been my pleasure to treat SILVESTRE BARTH under orders from Mike Henriquez DO, for the diagnosis of CVA for a total of 2 visit(s). Please see the following information for a summary of their discharge status. - Goals Patient Goals: Improve Visual/Perceptual Skills, Resume Former Household Responsibilities (Cooking,Cleaning,Yard, etc.), Resume Hobbies Goal:: Pt will complete simple meal prep tasks independently with good safety awareness and use of compensatory strategies as needed. Goal Met Goal:: Pt will be able to complete simple housekeeping tasks independently with good safety awareness and use of adaptive tech, compensatory strategies and energy conservation tech. Goal Met Goal:: pt and family will be educated on safety concerns adaptive tech, energy conservation tech, compensatory strategies to assist w/ IADLs with good understanding and demo 100%x. Goal Met - Plan Plan: d/c this date. - D/C Information Discharge Comments: Completed 4 step secquencing tasks of IADLs and able to sequence correctly through visual picture cards and education of safety precautions. Completed light meal prep tasks at kitchen. Pt demo good ability to complete light meal prep tasks independently following directions for hot esa, using correct utensils, safety in kitchen, proper use of microwave and cleaning up after himself in kitchen. Discussed safety concerns at home and SONNY needed at home with pt's sister whom cares for pt daily. Pt's sister stated he is doing well and independent at home with ADLs/IADLs. No safety concerns noted from sister. Pt uses stove top at home occassionally but does not use the oven. Pt primarily uses microwave to heat meals up family brings in and has son living with him. PLans for d/c this date 2' pt no longer in need of OT services and independent w/ ADLs/IADLs. If there are questions or concerns regarding this patient's occupational therapy , please fell free to call me at [phone]. Thank you for the referral of this patient. Sincerely, Michelle Silva
--- NOTE | 2017-05-01 11:14 | HP.SP.ADRE ---
Previous/Current Goals - Goals 1-5 Previous Goal #1: Bradley will follow 1 step commands on 4/5 trials with minimal cues. Goal 1 Status: Bradley varied initially from 60% to the next multiple sessions 0%. Unable to determine why 1st session was much higher than decreased. Currently he is able to follow 1 step directions with 33% accuracy with multiple repetitions. Previous Goal #2: Bradley will answer basic yes/ no questions on 4/5 trials with minimal cues. Goal 2 Status: Initially, simple yes/no questions were 80% with multiple repetitions/maximal cues. Currently, his accuracy is 83% with typically 0-1 repeition needed. Yes/no words are given to faciliate understanding of task. Previous Goal #3: Bradley will label objects/pictures on 4/5 trials with minimal cues. Goal 3 Status: Initially labeling was 21%, Currently he is able to label 13% independently but with a written word he is able to label with 40% accuracy. Some labels are always accurate (edel, quarter, dime, nickel) History - History Date of Eval: 03/26/17 Medical Diagnosis (from RX): CVA Date of Onset of Diagnosis: 02-22-17 Previous speech therapy: No Results: Home health but very limited to dc from . Other Relevant Medical History/Diagnoses/Surgery: PRevious CVA five years ago. A fib, DM2, HTN, sleep apnea, Smoking Status: Former smoker Hx Smoking: Yes - off and on Hx Tobacco Use: Yes - Pain Is pain an issue with your current prescribed condition?: No - Personal Right Hearing Abillity: Hard of Hearing Left Hearing Abillity: Hard of Hearing Patients Living Arrangements: son lives with him but not often avaliable per [facility] Patient Allergies - Allergies Allergies No Known Allergies Allergy (Verified 02/22/17 21:34) Objective Cog/Ling/Com - Test Administered Dfjbgxsyb-Yshbremeho-Qgsotydqyiepu Assessment Administered: Yes Zacpdbjna-Pkmtlkntua-Sejzdcxujwalp Assessment: Cognitive Linguistic skills were evaluated using patient/family interview, skilled observation and informal evaluation through tasks completed by the patient. - Orientation Orientation: Person - Identification Body parts/objects: Severe - Answer Yes/No Questions Simple: Mild Complex: Severe - Follows Commands 1 Step: Severe 2 Step: Severe - Automatic Sequences Automatic Sequences: Severe - Repetition Words: Severe - Naming Responsive naming: Severe Naming in categories: Severe - Conversational Tasks Conversational Tasks: Severe Comments: Bradley is able to use some sentences to faciliate communication but they are less than 20%. Often times there is no context in which the sentence is said. He has a go to word pheasant that he subsitutes often ( at least every other sentence). - Comments Comments: OVerall he is only able to be understood aproximately 30% of the time. - Reading Picture-Word Matching Picture-Word matching: Severe - Oral Reading Words: Severe Phrases: Severe Comments: Patient is unable to read anything at this time. - Writing Functional writing correctly: Name Words: Severe Plan - Plan Plan: Speech therapy is recommended to continue for another 8 weeks to focus on receptive and expressive language deficits as the patient is not able to effectively communicate wants and needs. - Recommendations Treatment Warranted: Yes - Frequency Frequency: 2x /Week Duration: 2 Months Visits in this POC: 16 - Prognosis Prognosis: Good - Goals that are Established: Determination:: Goals will be added/modified as deemed necessary and appropriate. Therapy will be discontinued when results of re-evaluation indicate therapy is no longer needed or lack of progress has been documented. - Goal #1-5 Goal #1: Bradley will follow 1 step commands on 4/5 trials with minimal cues. Goal #2: Bradley will answer basic yes/ no questions on 4/5 trials with minimal cues. Goal #3: Bradley will label objects/pictures on 4/5 trials with minimal cues.
--- NOTE | 2017-07-18 09:30 | DT_ITS ---
This patient was seen during an EMR downtime July 15, 2017 - July 22, 2017. This patient may have a combination of paper and electronic documentation or all paper documentation. All documentation is viewable within the e-chart portion of [facility] for each patient visit.
== END 2017-07-18 19:00 | disposition home or self-care (01) ==
LOC: SP 09:30
PROVIDERS: Family Provider Family Medicine; PCP Family Medicine; Visit Provider Family Medicine
DX: I67.9 Cerebrovascular disease, unspecified (principal); I69.391 Dysphagia following cerebral infarction; I69.315 Cognitive social or emotional deficit following cerebral infarction
CPT/HCPCS: 92507; 97162; 97165; 97535; G8987; G8988

== ENCOUNTER → 2017-07-29 10:27 | Outpatient (CLI) | payer MEDICARE, SELFPAY ==
[2017-07-29 11:36] LABS: Anion Gap 9 (5-15); BUN 20 mg/dL (7-18); BUN/Creat Ratio 12.7 RATIO (10-20); Chloride 104 mmol/L (98-107); Creatinine, Serum 1.57 mg/dL (0.70-1.30); EST Glomerular Filtration Rate 45 mL/min (>60); Est Glom Filt Rate - Afr Amer 55 mL/min (>60); Glucose 266 mg/dL (74-106); Potassium 4.8 mmol/L (3.5-5.1); Sodium Level 138 mmol/L (136-145)
== END ==
PROVIDERS: Family Provider Internal Medicine; PCP Internal Medicine; Visit Provider Internal Medicine
DX: R53.1 Weakness (principal)
CPT/HCPCS: 36415; 80048

== ENCOUNTER → 2017-07-31 06:51 | Outpatient (CLI) | payer MEDICARE, SELFPAY ==
--- NOTE | 2017-07-31 13:03 | STRESSREP ---
Stress Test Report Pharmacologic myocardial perfusion stress test. 82-year-old man with a history of coronary artery disease. Stress protocol: Resting EKG demonstrates atrial for ablation with a rate of 90 bpm. Resting blood pressure is 142/82 mmHg. 0.4 mg of regadenoson was infused per usual protocol followed by rapid intravenous saline flush injection continuous EKG monitoring was performed. Patient maintained atrial fibrillation throughout the recording. The maximum heart rate was 111 bpm which was 81% of maximum predicted heart rate the maximum workload was 1 metabolic equivalent. At rest there were no ST or T-wave changes noted suggest abnormal flow reserve at peak infusion no ST or T-wave changes were noted to suggest abnormal flow reserve. Patient maintained atrial fibrillation throughout the recording resting blood pressure is 142/82 final blood pressure is 134/78. Myocardial perfusion protocol. 12.0 mCi of technetium 99m sestamibi was injected at rest. 0.4 mg regadenoson was infused per usual protocol peak infusion 34.3 mCi of technetium 99m sestamibi was injected stress images were obtained stress and rest images were reconstructed and compared in the short axis vertical long and horizontal long axis. Gated images were also obtained pre- Perfusion SPECT analysis. Review of the stress images demonstrate a normal cardiac silhouette size. There is a medium-sized defect involving the mid septum towards the apex as well as the inferior septal wall and inferior apical wall. The apex also has a perfusion defect. This pattern is present on the stress and rest images to a similar extent suggesting a previous infarction involving the distal anteroseptal wall, apex and inferior apical wall. No reversibility is noted to suggest ischemia. Gated SPECT analysis: The gated ejection fraction is noted to be 45% with a hypokinetic apex. Conclusion: Pharmacologic myocardial perfusion stress test with evidence of apical and apical septal and inferior apical infarct. Mild ischemic cardiomyopathy with apical hypokinesis present.
== END ==
PROVIDERS: Family Provider Internal Medicine; PCP Internal Medicine; Visit Provider Internal Medicine
DX: I20.9 Angina pectoris, unspecified (principal)
CPT/HCPCS: 78452; 93017; A9500; A4216

== ENCOUNTER → 2017-09-10 14:17 | Outpatient (CLI) | payer MEDICARE, SELFPAY ==
[2017-09-10 15:04] LABS: Anion Gap 10 (5-15); BUN 23 mg/dL (7-18); BUN/Creat Ratio 13.7 RATIO (10-20); Calcium,Total 9.5 mg/dL (8.5-10.1); Chloride 105 mmol/L (98-107); Creatinine, Serum 1.68 mg/dL (0.70-1.30); EST Glomerular Filtration Rate 42 mL/min (>60); Est Glom Filt Rate - Afr Amer 50 mL/min (>60); Glucose 304 mg/dL (74-106); Potassium 4.6 mmol/L (3.5-5.1); Sodium Level 142 mmol/L (136-145)
[2017-09-10 15:11] LABS: Hemoglobin A1c 12.1 % (4.2-6.3)
== END ==
PROVIDERS: Family Provider Internal Medicine; PCP Internal Medicine; Visit Provider Internal Medicine
DX: E11.9 Type 2 diabetes mellitus without complications (principal); I67.9 Cerebrovascular disease, unspecified; I69.391 Dysphagia following cerebral infarction; I69.315 Cognitive social or emotional deficit following cerebral infarction; I69.30 Unspecified sequelae of cerebral infarction
CPT/HCPCS: 36415; 80048; 83036; 92507

== ENCOUNTER 2017-09-19 08:00 | Outpatient (RCR) | payer MEDICARE, SELFPAY ==
--- NOTE | 2017-08-20 09:21 | HP.SP.ADRE_ITS ---
History - History Date of Eval: 05/01/17 Date of Onset of Diagnosis: 02/22/17 Previous speech therapy: Yes Results: Home Health but very limited to DC from Other Relevant Medical History/Diagnoses/Surgery: Previous CVA five years ago, Afib, DM2, HTN, sleep apnea Smoking Status: Former smoker Hx Smoking: Yes - off and on Hx Tobacco Use: Yes - Pain Is pain an issue with your current prescribed condition?: No - Personal Right Hearing Abillity: Hard of Hearing Left Hearing Abillity: Hard of Hearing Visual Assistive Devices: Glasses Patients Living Arrangements: son lives with him but not often available. Patient Allergies - Allergies Allergies No Known Allergies Allergy (Verified 05/22/17 10:54) BDAE-3 - Summary Profile Auditory Comprehension Basic word discrimination Percentile: less thanl 10% Commands Percentile: 0% Complex Ideational Material Percentile: 0% - Summary Profile Naming Responsive Naming Percentile: 0% - Summary Profile Reading Matching cases and scripts: 40% Number matchin% Picture - word matchin% Oral word reading: less than 10% - BDAE-3 Comments Additional comments Patient relies on his sisters and friends to bring him to therapy. Patient switched therapists and has been working with this therapist for 8 sessions. 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 Plan - Plan Plan: Therapist plans to set up meeting with patient's primary civil engineering design draftsperson to discuss patient's status. - Recommendations Treatment Warranted: Yes - Frequency Visits in this POC: 10 - Prognosis Prognosis: Fair - Goals that are Established: Determination:: Goals will be added/modified as deemed necessary and appropriate. Therapy will be discontinued when results of re-evaluation indicate therapy is no longer needed or lack of progress has been documented. - Goal #1-5 Goal #1: To set up meeting with primary caretakes to discuss patients current status. Goal #2: To work on having patient be able to provide information using various modalities( writing, verbal, simple augmentative aid) to be able to communicate his wants and needs and essential personal information to others in his daily living environment. Prompts: Mod
== END 2017-09-19 18:09 | disposition home or self-care (01) ==
LOC: SP 08:00
PROVIDERS: Family Provider Internal Medicine; PCP Internal Medicine; Visit Provider Family Medicine
DX: I67.9 Cerebrovascular disease, unspecified (principal); I69.391 Dysphagia following cerebral infarction; I69.315 Cognitive social or emotional deficit following cerebral infarction; I69.30 Unspecified sequelae of cerebral infarction
CPT/HCPCS: 92507

== ENCOUNTER 2017-10-15 10:00 | Outpatient (RCR) | payer MEDICARE, SELFPAY ==
--- NOTE | 2017-09-26 18:55 | HP.SP.ADRE ---
Previous/Current Goals - Goals 1-5 Previous Goal #1: To set up meeting with primary caretakes to discuss patients current status. [ End ] Goal 1 Status: Patient's sister came for one session, and therapist went over insurance requirements and co-pay. Family member last stayed for session on 09/03/17. [ End ] Previous Goal #2: To work on having patient be able to provide information using various modalities( writing, verbal, simple augmentative aid) to be able to communicate his wants and needs and essential personal information to others in his daily living environment. [ End ] Goal 2 Status: During session on 09/24/17 during spontaneous conversation, patient was able to use visual props spontaneously to communicate where had gone yesterday. Patient was able to say enough content words that he was able to communicate to the clinician that he had had his eye exam. With written words and corresponding pictures that he had been working on, Patient was able to match them with 83%. With unfamiliar pictures and corresponding words, patient was able to match them with 50%. Patient was able to write his phone number independently. He continued to need moderate cueing to write his address. patient was able to complete basic word discrimination with 47%. Patient unable to communicate to therapist what he would do if there was a fire at his home. Patient continues to have moderate difficulty verbally expressing himself so that others can understand him. [ End ] History - History Date of Eval: 05/01/17 Date of Onset of Diagnosis: 02/22/17 Previous speech therapy: Yes Results: Home health but very limited to DC from Other Relevant Medical History/Diagnoses/Surgery: Previous CVA 5 years ago, Afib, DM2, HTN, sleep apnea Smoking Status: Former smoker Hx Smoking: Yes - on and off Hx Tobacco Use: Yes - Pain Is pain an issue with your current prescribed condition?: No - Personal Right Hearing Abillity: Hard of Hearing Left Hearing Abillity: Hard of Hearing Patients Living Arrangements: familly members visit frequently Patient Allergies - Allergies Allergies No Known Allergies Allergy (Verified 05/22/17 10:54) Plan - Plan Plan: To have patient be able to communicate wants and needs in daily living situations where he needs to communicate important information to others. There are frequent times where patient is by himself at his home. - Recommendations MBS: No Treatment Warranted: Yes - Frequency Visits in this POC: 6 - Prognosis Prognosis: Fair - Goals that are Established: Determination:: Goals will be added/modified as deemed necessary and appropriate. Therapy will be discontinued when results of re-evaluation indicate therapy is no longer needed or lack of progress has been documented. - Goal #1-5 Goal #1: To work on having patient be able to provide information using various modalities( writing, verbal, simple augmentative aid) to be able to communicate his wants and needs and essential personal information to others in his daily living environment and for emergency situations. [ End ] Prompts: Mod Goal #2: To set up meeting with primary caretakes to discuss patients current status. [ End ]
== END 2017-10-15 19:00 | disposition home or self-care (01) ==
LOC: SP 10:00
PROVIDERS: Family Provider Internal Medicine; PCP Internal Medicine; Visit Provider Family Medicine
DX: I69.391 Dysphagia following cerebral infarction (principal); I69.390 Apraxia following cerebral infarction; I69.315 Cognitive social or emotional deficit following cerebral infarction
CPT/HCPCS: 92507

== ENCOUNTER 2017-12-12 09:00 | Outpatient (RCR) | payer MEDICARE, SELFPAY ==
--- NOTE | 2017-11-14 20:42 | HP.SP.ADRE_ITS ---
Previous/Current Goals - Goals 1-5 Previous Goal #1: To work on having patient be able to provide information using various modalities (writing, verbal, visual supportssuch as calanders, lists of family members, addresses ect) to be able to communicate his wants and needs and essential personal information to others in his daily linging environment and for emergency situations.. Goal 1 Status: Patient has made limited progress on auditory comprehension and verbal expressive skills. Patient's strength lies in is ability to read short simple 1-3 word sentences. Patient needs processing time to read the phrases as he has to read over them several times. On session on October 15, 2017, Patient selected the word from a choice of three that best completed the sentence with 70%. Pointed to picture that was described by a sentence when given a choice of 3 sentences with 90%. Patient needed time to process. Patient has improved in his reading comprehension skills. Patient has been inconsistent in bringing in his calendar which is to have his appointment schedules on it. [ End ] Previous Goal #2: To continue to have contact with primary caretakers to discuss patient's status and to help with carry-over of strategies used in the therapy sessions. Goal 2 Status: Met with sister on 11/14/17. Discussed Patient's status. She is aware of patient's limited progress and wants him to continue therapy. Discussed with patient's sister about therapist's concern that he is still driving. History - History Date of Eval: 05/01/17 Date of Onset of Diagnosis: 02/22/17 Previous speech therapy: Yes Results: Home health for short period of time. Other Relevant Medical History/Diagnoses/Surgery: Previous CVA 5 years ago, AFIB, DM2, HTN, sleep apnea Smoking Status: Former smoker Hx Smoking: Yes Hx Tobacco Use: Yes - Pain Is pain an issue with your current prescribed condition?: No - Personal Right Hearing Abillity: Hard of Hearing Left Hearing Abillity: Hard of Hearing Patients Living Arrangements: lives alone, family members visit frequently Patient Allergies - Allergies Allergies No Known Allergies Allergy (Verified 10/04/17 09:19) BDAE Re-Eval - Testing Results Re-Evaluation of BDAE-3: Completed testing on BDAE. Oral expression days of week 6/7, counting to 20--100%. responsive naming 0%, On the [place] naming short form patient was able to spontaneously name 2/15, and when given a multiple choice of written words was able to name 6/15. Reading-- Basic symbol recognition-3/4 , number matching-100%, Kinyarwanda numbers matched to dote patterns- 100%, word identification-picture word matching-2/4; oral reading-basic oral word reading 0%. Unable to write address independently. Plan - Plan Plan: Will continue to work on using a variety of modalities to communicate in daily living situations and regarding saftey issues. - Prognosis Prognosis: Fair - Goal #1-5 Goal #1: To work on having patient be able to provide information using various modalities (writing, verbal, visual supportssuch as calanders, lists of family members, addresses ect) to be able to communicate his wants and needs and essential personal information to others in his daily linging environment and for emergency situations..
--- NOTE | 2017-12-12 11:12 | HP.SP.DC ---
ST Discharge Summary - Discharged: Discharge: Patient was able to communicate that he had tried to work on what the therapist had given him to work on but he didn't understand it and he spent hours on it. Patient appeared very frustrated. Patient continues to present severe to moderate impairments in auditory comprehension and expressive language. Patient conversational speech consists of paraphasia?s with some true words embedded. Patient is not aware most of the time that he is not producing true words. Therapist discussed with patients progress and discussed with him that he had plateaued on his progress and that at this point it was not good for him to get so frustrated on assignments that he was trying to do at home. Patient lives by himself most of the time and has told the therapist that there is really no one to help him with these assignments. Therapist discussed with him last week that this session would be his last session. Patient can get his basic wants and needs known to others when given time. Patient has friends and sisters that transport him now from place to place. Patient has been discharged from speech therapy.
== END 2017-12-12 15:41 | disposition home or self-care (01) ==
LOC: SP 09:00
PROVIDERS: Family Provider Internal Medicine; PCP Internal Medicine; Visit Provider Family Medicine
DX: I69.30 Unspecified sequelae of cerebral infarction (principal); I67.9 Cerebrovascular disease, unspecified; I69.391 Dysphagia following cerebral infarction; I69.315 Cognitive social or emotional deficit following cerebral infarction
CPT/HCPCS: 92507

== ENCOUNTER → 2018-02-13 09:29 | Outpatient (CLI) | payer MEDICARE, SELFPAY ==
[2017-10-04 09:18] VITALS: BMI 25.7
[2018-02-13 10:51] LABS: Hematocrit 43.9 % (40-54); Hemoglobin 14.5 g/dl (13.0-16.5); Mean Corpuscular Hgb 30.1 pg (27.0-32.0); Mean Corpuscular Volume 91.3 fL (80-94); Mean Platelet Vol. 11.2 fl (6.2-12.0); Platelet Count 257 K/mm3 (150-450); RBC Distribution Width CV 14.1 % (11.6-14.6); RBC Distribution Width SD 47.5 fl (35.1-43.9); Red Blood Count 4.81 M/mm3 (4.6-6.2); White Blood Count 7.3 K/mm3 (4.4-11.0)
[2018-02-13 10:54] LABS: Scan Indicated on CBC? Y/N NO
[2018-02-13 11:22] LABS: Hemoglobin A1c 11.2 % (4.2-6.3)
[2018-02-13 11:27] LABS: ALB/GLOB Ratio 0.8 RATIO (0.9-2.4); AST(SGOT) 19 U/L (15-37); Alanine Aminotransfer ALT/SGPT 39 U/L (16-61); Albumin, Serum 3.4 g/dL (3.2-5.0); Alkaline Phosphatase 99 U/L (45-117); Anion Gap 7 (5-15); BUN 29 mg/dL (7-18); BUN/Creat Ratio 18.4 RATIO (10-20); Calcium,Total 9.1 mg/dL (8.5-10.1); Chloride 104 mmol/L (98-107); Cholesterol 114 mg/dL (200); Creatinine, Serum 1.58 mg/dL (0.70-1.30); EST Glomerular Filtration Rate 45 mL/min (>60); Est Glom Filt Rate - Afr Amer 54 mL/min (>60); Glucose 280 mg/dL (74-106); High Density Lipoprotein 49 mg/dL; Potassium 4.4 mmol/L (3.5-5.1); Protein, Total 7.4 g/dL (6.4-8.2); Sodium Level 137 mmol/L (136-145); Thyroid Stim Hormone (TSH) 6.21 uIU/mL (0.358-3.74); Triglycerides 96 mg/dL; Very Low Density Lipoprotein 19 mg/dL (5-40)
== END ==
PROVIDERS: Family Provider Internal Medicine; PCP Internal Medicine; Referring Provider Internal Medicine; Visit Provider Internal Medicine
DX: E03.9 Hypothyroidism, unspecified (principal); E11.9 Type 2 diabetes mellitus without complications; Z86.73 Personal history of transient ischemic attack (TIA), and cerebral infarction without residual deficits
CPT/HCPCS: 36415; 80053; 80061; 83036; 84443; 85027

== ENCOUNTER → 2018-03-18 12:58 | Outpatient (CLI) | payer MEDICARE, SELFPAY ==
--- NOTE | 2018-03-18 13:00 | MRI_ITS ---
STUDY: MRI CERVICAL SPINE WITHOUT CONTRAST REASON FOR EXAM: Male, 82 years old. Neck pain TECHNIQUE: Standardized fat and water weighted pulse sequences were obtained in the sagittal and axial planes. COMPARISON: None FINDINGS: Normal foramen magnum and brainstem-cervical cord junction. Normal craniovertebral junction. There are degenerative changes of the anterior atlantoaxial articulation. Normal odontoid process. Normal cervical lordosis. Normal vertebral bodies and posterior osseous elements. C2-3: Endplate spondylosis. Central and paracentral disc bulge. Degenerative changes of the bilateral facet joints and uncovertebral joints. Mild narrowing of the central canal and the bilateral intervertebral neural foramina. C3-4: Endplate spondylosis. Central and paracentral disc bulge. Degenerative changes of the bilateral facet joints and uncovertebral joints. Moderate narrowing of the central canal and the bilateral intervertebral neural foramina. C4-5: Endplate spondylosis. Central and paracentral disc bulge. Degenerative changes of the bilateral facet joints and uncovertebral joints. Moderate narrowing of the central canal and the bilateral intervertebral neural foramina. C5-6: Endplate spondylosis. Central and paracentral disc bulge. Degenerative changes of the bilateral facet joints and uncovertebral joints. Mild narrowing of the central canal and moderate narrowing of the bilateral intervertebral neural foramina. C6-7: Endplate spondylosis. Central and paracentral disc bulge. Degenerative changes of the bilateral facet joints and uncovertebral joints. Mild narrowing of the central canal and moderate narrowing of the bilateral intervertebral neural foramina. C7-T1: Normal endplates. Normal disc height, signal and morphology. Normal central canal and intervertebral neural foramina. Normal cervical cord. Normal visualized soft tissue structures. MRI/Spine Cervical (Routine) IMPRESSION: Multilevel degenerative changes, as described above. Electronically Signed: Frances Chatman MD at 7:46 EST Tel , Service support ,
--- NOTE | 2018-03-18 13:45 | MRI_ITS ---
STUDY: MRI THORACIC SPINE WITHOUT CONTRAST REASON FOR EXAM: Male, 82 years old. Radiculopathy. Abd. pain x several month TECHNIQUE: Standardized fat and water weighted pulse sequences were obtained in the sagittal and axial planes. COMPARISON: None. FINDINGS: Normal kyphosis of the thoracic spine. There is no substantial scoliosis. T1-2, T2-3, T3-4, T4-5, T5-6, T7-8, T8-9, T9-10, T10-11, T11-12: Multilevel endplate spondylosis. Decreased disc height, dehydration without significant disc bulge. Degenerative changes of the bilateral facet joints. Mild narrowing of the central canal. Normal neural foramina. At T6-7: Endplate spondylosis. Decreased disc height, dehydration and small broad-based central disc bulge. Degenerative changes of the bilateral facet joints. Mild narrowing of the central canal. Normal neural foramina. Normal visualized thoracic cord. Normal conus medullaris that terminates at the . The soft tissue structures are unremarkable. MRI/Spine Thoracic (Routine) IMPRESSION: Multilevel degenerative changes of the thoracic spine . Electronically Signed: Frances Chatman MD at 6:58 EST Tel , Service support ,
== END ==
PROVIDERS: Family Provider Internal Medicine; PCP Internal Medicine; Referring Provider Internal Medicine; Visit Provider Internal Medicine
DX: M54.14 Radiculopathy, thoracic region (principal)
CPT/HCPCS: 72141; 72146

== ENCOUNTER → 2018-03-27 12:23 | Outpatient (CLI) | payer MEDICARE, SELFPAY ==
--- NOTE | 2018-03-27 12:27 | NM_ITS ---
CLINICAL: 82-year-old male with reported history of right upper quadrant abdominal pain. RADIONUCLIDE HEPATOBILIARY SCINTIGRAPHY COMPARISON: CT of the abdomen-pelvis report 04/17/2017 FINDINGS: Following the intravenous administration of 5.0 mCi of 99m Tc Mebrofenin, hepatobiliary images reveal: 1. Relatively prompt and homogeneous radiopharmaceutical concentration is noted by a normal sized liver. No parenchymal defects are identified. 2. Gallbladder activity is identified at 15 minutes post radiopharmaceutical administration. 3. Small intestinal tract is observed at 30 minutes following tracer injection. 4. Washout of the radiopharmaceutical by the hepatic parenchyma appears qualitatively normal. Cholecystokinin (0.02 ug/kg) was administered intravenously over a 30-minute period. The post CCK gallbladder ejection fraction calculated at 20 minutes following Cholecystokinin administration was noted to be < 5 % (normal greater than 35%). NM/Hepatobilliary Img w/Pharm Int IMPRESSION: 1. ABNORMAL 99m Tc Mebrofenin hepatobiliary imaging examination with Cholecystokinin. A. A gallbladder ejection fraction calculated to be less than 35% following the administration of Cholecystokinin is consistent with the presence of functional hepatobiliary disease (gallbladder and/or sphincter of Oddi dyskinesia) and/or organic hepatobiliary disease (chronic acalculous cholecystitis and/or cystic duct syndrome) in patients with intermediate to high pretest probabilities of hepatobiliary illness. (Magi Pruitt et al, Journal of Nuclear Medicine 32:1695, 1990). Electronically Signed: Kane Song DO at 10:26 EST Tel , Service support ,
== END ==
LOC: NM 12:24
PROVIDERS: Family Provider Internal Medicine; PCP Internal Medicine; Referring Provider Internal Medicine; Visit Provider Internal Medicine
DX: R10.13 Epigastric pain (principal)
CPT/HCPCS: 78227; A9537; J2805

== ENCOUNTER → 2018-03-29 08:35 | Outpatient (CLI) | payer MEDICARE, SELFPAY ==
--- NOTE | 2018-03-29 09:00 | US_ITS ---
STUDY: ABDOMINAL ULTRASOUND - RIGHT UPPER QUADRANT REASON FOR VISIT: Male, 82 years old. Epigastric pain TECHNIQUE: Ultrasound evaluation of the right upper quadrant was performed with real-time and static vargas-scale imaging. TECHNICAL QUALITY: Adequate. COMPARISON: None. FINDINGS: A very small volume right pleural effusion is suspected, rather than perihepatic fluid (NO fluid in the hepatorenal recess). Liver: The liver measures 15 cm. There is normal echogenicity of the liver. The bile ducts are within normal limits. There is hepatic color flow. The direction of portal flow is hepatopetal. There is no demonstrated mass lesion. Gallbladder: Normal distended gallbladder. The gallbladder wall measures 2.8 mm. There is a negative sonographic Berumen's sign. There is no pericholecystic fluid. There are no gallstones. Common Bile Duct (C.B.D.): The common bile duct measures 2.9 mm. Pancreas: There is normal echogenicity of the visualized pancreas. There is no demonstrated pancreatic mass or cyst. Right Kidney: Normal size of the right kidney. The right kidney measures 10.2 x 4.9 x 5.8 cm. Normal renal cortex. The right cortex measures 1.6 cm. There are 2 anechoic cysts of the right kidney measuring up to 3.3 cm. There is no right hydronephrosis. US/Abdomen Limited IMPRESSION: 1. No gallstones or gallbladder wall thickening. No biliary obstruction. 2. Suspect trace right pleural fluid. 3. Simple right renal cyst. Electronically Signed: Jeremy Vega MD at 11:41 EST , Service support ,
== END ==
PROVIDERS: Family Provider Internal Medicine; PCP Internal Medicine; Referring Provider Internal Medicine; Visit Provider Internal Medicine
DX: R10.13 Epigastric pain (principal)
CPT/HCPCS: 76705

== ENCOUNTER 2018-04-10 10:29 | Day surgery (SDC) | payer MEDICARE, SELFPAY ==
[2018-04-07 10:57] VITALS: BMI 25.7
[2018-04-10] VITALS (7 sets, daily range): BP systolic 98–132; BP diastolic 61–87; PULSE 73–96; RESP 14–18; TEMP 36.2–37.1; O2SAT 92–96; BMI 25.9
--- NOTE | 2018-04-10 07:25 | PCM.HP.BLA ---
History and Physical Date of Admission: 04/10/18 HISTORY AND PHYSICAL ? Bradley Ashton 1935 ? REFERRING PHYSICIAN: ??Tala Argueta MD ? CHIEF COMPLAINT: ??Known right upper quadrant and?LUQ pain ? HPI: The patient is a 82 year old male referred last year for left upper quadrant pain. ?I initially saw the patient in May 2017.??The patient notes pain in his left upper quadrant region. ?The pain is worse with moving or stretching. ?The pain is not affected by eating. ?He denies nausea or vomiting. ?He denies hematochezia or melena. ?He was given stool softeners when following CT imaging, it was felt he had significant fecal loading, which didn't really seem to change his symptoms. ?His caregivers note that may be hasn't discomfort improved somewhat when he decreased his metformin dose. ? He underwent CT scan of the abdomen and pelvis at [facility] which demonstrated no obstructions or abnormalities specifically in the left upper quadrant. ? The patient had a CVA for which he was transferred for care to [facility] from [facility] on February 23, 2017. ?His motor function is intact, but he has significant aphasia. ?He had a previous history of a left carotid endarterectomy performed by Dr. Martini in 2011. ? He was given a prescription for Prilosec, but he is not regularly taking it. ?He is currently on Eliquis. ?He has not had upper endoscopy. ?He is likely not had lower endoscopy. ? We postponed endoscopy at that time due to the fact that he had had a recent CVA. ? Over the last year, the patient is still struggled with his expressive aphasia. ?He is noting however more symptomatic upper abdominal complaints. ?He notes them to be vacation in both left and right upper quadrants. ?He has difficulty expressing whether this occurs after meals. ? ? Dr. Argueta ordered upper endoscopy which demonstrated no specific abnormalities. ?Hiatus scan with ejection fraction was ordered next. ?This demonstrated a very low ejection fraction of less than 3%. ?This however could not necessarily reproduce the patient's symptoms. ? The patient is being seen by me today at the request of Dr. Tala Argueta MD for my opinion and advice regarding left upper quadrant pain. ? ? PAST MEDICAL HISTORY PAST MEDICAL HISTORY Diagnosis Date ? Aphagia ? ? Carotid artery stenosis ? ? Intracranial carotid stenosis, bilateral 02/24/2017 ? Other and unspecified hyperlipidemia ? ? Stroke (HCC) 02/2017 ? Unspecified essential hypertension ? ? ? PAST SURGICAL HISTORY PAST SURGICAL HISTORY Procedure Laterality Date ? HERNIA REPAIR W/MESH ? ? ? Bilateral inguinal ? ? CURRENT MEDICATIONS ? Current Outpatient Prescriptions: glipiZIDE (GLUCOTROL XL) 2.5 mg 24 hr tablet once daily. aspirin, enteric coated (ASPIRIN, ENTERIC COATED) 81 mg EC tablet Take 81 mg by mouth once daily. atorvastatin (LIPITOR) 80 mg tablet Take 1 tablet by mouth daily at bedtime. olmesartan (BENICAR) 5 mg tablet Take 1 tablet by mouth once daily. COMPOUNDED PRESCRIPTION Rx: Shower ChairDiagnosis: L Middle Cerebral Artery Stroke COMPOUNDED PRESCRIPTION Blood Pressure Cuff and ReaderDiagnosis: HTN and Stroke sitaGLIPtin (JANUVIA) 50 mg tablet Take 1 tablet by mouth once daily. levothyroxine (SYNTHROID) 25 mcg tablet Take 1 tablet by mouth once daily. blood sugar diagnostic (CONTOUR NEXT STRIPS) test strip Use as instructed Lancets (MICROLET LANCET) lancets Use as instructed apixaban (ELIQUIS) 5 mg tab tab(s) Take 1 tablet by mouth twice daily. metFORMIN (GLUCOPHAGE) 500 mg tablet Take 500 mg by mouth twice daily. omeprazole (PRILOSEC) 20 mg capsule Take 2 capsules by mouth once daily. polyethylene glycol 3350 17 gram packet Take 1 Packet by mouth once daily as needed. [place]-3 Fatty Acids, FISH OIL, (FISH OIL) 360-1,200 mg Cap Take 1 capsule by mouth once daily. Patient takes 5 capsules per day. ? No current facility-administered medications for this visit. ? ALLERGIES: Penicillins ? PERSONAL HISTORY: SOCIAL HISTORY Social History ??Marital status: ?Spouse name: ?Years of education: ?Number of children: ? Social History Main Topics ??Smoking status: Former Smoker ?Packs/day: 0.00 ?Years: 0.00 ?Quit date: 08/27/1991 ??Smokeless tobacco: Never Used ?Alcohol use: Yes ?Comment: rare ??Drug use: No ? FAMILY HISTORY: FAMILY HISTORY FAMILY HISTORY Problem Relation Age of Onset ? other (Emphysema, hypoglycemia) Father ? age 69 ? other (ALS) Mother ? age 84 ? other (DM1) Sister ?alive age 71 ? other (DM 2) Brother ? age 83 ? other (Heart - sudden ) Sister ? age 60s ? other (congenital heart condition. Sudden ) Sister ? age 30s ? other (influenza) Brother ? age 30s ? other (Hypoglycemia) Sister ?alive age 79 ? REVIEW OF SYMPTOMS: ??The review of systems data was entered by the nurse and reviewed by me ? Nursing Notes: Caitlyn Landon Ma ?04/08/2018 ?2:46 PM ?Signed REVIEW OF SYSTEMS: ?General:???The patient denies fatigue, denies weight loss, denies weight gain, denies feeling hot, and denies feelings of cold. ?Eyes: ?The patient denies glaucoma, denies eye injury/surgery, wears glasses or contacts. ?Ear/Nose/Throat: ?The patient denies allergies, denies hayfever, denies ear infections, and denies bloody noses. ?Cardiovascular: ?The patient denies chest pain, denies heart disease, NOTES high blood pressure,denies cardiac stent, denies prior heart attack, denies irregular heart beat, denies high cholesterol, ?denies poor circulation, denies heart failure, other cardiac issues, denies claudication, denies cold feet, denies peripheral arterial stent. ?Respiratory: ?The patient denies tuberculosis, denies pneumonia, denies frequent cough, denies pulmonary embolism, denies shortness of breath, and denies coughing up blood. ?Gastrointestinal: ?The patient denies difficulty swallowing, denies acid reflux, denies ulcers, denies vomiting, denies jaundice/hepatitis, NOTES gallbladder problems, denies black or tarry stools, denies hemorrhoids, denies bleeding from rectum, denies diverticulitis, denies constipation, denies diarrhea, denies loss of stool control, and denies hernias. ?Kidney/Bladder: ?The patient denies kidney stones, denies urine infections, and denies bloody urine. ?Skin: ?The patient denies a history of skin cancer, denies bleeding/changing moles, and denies a history of skin rash. ?Neurologic: ?The patient denies a history of epilepsy/convulsions, denies headaches, denies head/spinal injuries, and NOTES stroke/TIA. ?Psychiatric: ?The patient denies psychiatric medications, denies depression, and denies voices, denies substance abuse. ?Endocrine: ?The patient denies thyroid disorders, NOTES diabetes, and denies hormonal problems. ?Hematologic: ?The patient denies a history of bruising, denies bleeding, and denies anemia, denies blood clots. ?Infections: ?The patient denies a history of measles and mumps, denies rheumatic fever, and denies sexually transmitted diseases. ?Musculoskeletal: ?The patient denies back pain/injury, denies back problems, denies sciatica, denies knee/foot trouble, denies arthritis, or denies gout. ? ? When was patient's last Mammogram screening? N/A ? ?Last Colonoscopy: ?Unknown ? Caitlyn Landon Ma ? PHYSICAL EXAMINATION: ? General: ?The patient is 82 year old male, well nourished, well hydrated in no acute distress. ?The patient is oriented to time, place, and person. ? VITALS: Blood pressure 138/78, pulse 86, temperature 36.6 ?C (97.8 ?F), temperature source Temporal Artery, weight 82.6 kg (182 lb), SpO2 97 %.?Body mass index is 24.65 kg/m?.? ? HEENT: ?Normal cephalic, ataumatic, pupils are equally round, sclera are anicteric, mucous membranes are moist, oropharynx is clear. ?Neck has no masses, asymmetry or lymphadenopathy. ?Thyroid is unremarkable. ? Respiratory: ?Clear to auscultation and percussion. ?Normal respiratory excursion and pattern. ? Cardiac: ?Examination is regular rate and rhythm. ? Abdominal exam: ?Soft, nontender, ?with no palpable masses. ?No hepatosplenomegaly. ?No palpable hernias. ?He seems most tender at the costochondral margin. ?He does not seem to have left upper quadrant tenderness on deep palpation ? Rectal exam: exam deferred ? Extremities: ?no clubbing, cyanosis or edema. ?No adenopathy. ? Other: ? LABORATORY VALUES: As Noted ? RADIOLOGIC STUDIES: ?As Noted ? Assessment ? IMPRESSION: Right and left upper quadrant pain, unknown etiology ? PLAN: I plan to perform upper endoscopy. ??We discussed the risks and benefits of the planned endoscopy. ?I have informed the patient that complications can occur including failure to complete the endoscopy and perforation. ?The patient had the opportunity to ask questions concerning the planned endoscopy. ?My staff has also explained the procedure to the patient in understandable terms and has given the patient printed material concerning the procedure. ?The patient freely consents to surgery. ? If this is unremarkable then I will consider cholecystectomy. ? ? ? Diagnoses: (R10.12) LUQ pain ?(primary encounter diagnosis) ? A letter was sent to Dr. Tala Argueta MD indicating the above finding for this patient. ?? Return to Clinic: The patient is instructed to follow-up with me after testing is complete. ? ? Kane Light MD
[2018-04-10 11:10] LABS: Bedside Glucose 166 mg/dL (70-110)
--- NOTE | 2018-04-10 12:00 | EGD_PTH ---
PATIENT: SILVESTRE BARTH LOC: EN U#:[id number] AGE/SX: 82/M ROOM: RE04/10/[address]: Dr. Kane Light MD : [id number] BED: DIS: 04/10/2018 SPEC #: [id number] RECD: 04/10/18 13:44 STATUS: MEGAN BELKIS #: [id number] RANJEET: 04/10/18 12:[address]: Kane Light DEPT: SURGICAL PATHOLOGY RECD BY: Rocky Gallagher ENTERED: 04/10/18 14:07 SP TYPE: EGD BIOPSY ZOHREH DR: Dr. Tala Argueta MD Tissues: Gastric mucous membrane Procedures: Surgery Specimen Level IV HEADER OPERATION: EGD ([facility]) PRE-OP DIAGNOSIS: Right and left upper quadrant pain TISSUE SUBMITTED: Antral biopsy MICROSCOPIC DIAGNOSIS Antral biopsy: A fragment of squamous epithelium with mild chronic inflammation. Gastric mucosa is not identified in the submitted specimen. SJ:shakir 04/11/18 COMMENT This information is conveyed to Dr. Light's office on 04/11/18. MICROSCOPIC DESCRIPTION Slides are reviewed. GROSS DESCRIPTION Received in fixative is one container labeled with the patient's name and designated antral biopsy. The specimen consists of one irregular fragment of light brady soft tissue that measures 0.4 x 0.2 x 0.1 cm. The specimen is totally submitted in one cassette. / AMADEO:shakir 04/10/18 TC:3 CPT: 98018
--- NOTE | 2018-04-10 12:26 | OP.ENDO_ITS ---
04/10/2018 Tala Argueta [facility] [address] [place] [address] Re : Upper GI endoscopy procedure for Bradley Ashton Dear Dr. Argueta This procedure was performed on March. My impressions and recommendations are as follows: Impressions : - Normal examined jejunum. - Duodenitis. - Gastritis. Biopsied. - Non-severe reflux esophagitis. Biopsied. Recommendations : - Await pathology results. - Return to my office in 1 week. - Continue present medications. My findings are described in the full procedure note, which is enclosed. If I can be of further assistance, please feel free to contact me at Doctor phone number(s): , Work: . Sincerely, Kane Light MD 04/10/2018 12:25:43 PM This report has been signed electronically.
== END 2018-04-10 13:30 | disposition home or self-care (01) ==
LOC: EN 10:29 → AC 10:32
PROVIDERS: Family Provider Internal Medicine; PCP Internal Medicine; Referring Provider Surgery; Visit Provider Surgery
PROC: 0DJ08ZZ Inspection of Upper Intestinal Tract, Via Natural or Artificial Opening Endoscopic (ICD-10-PCS; CPT 43235; principal; 2018-04-10 11:55)
DX: K29.50 Unspecified chronic gastritis without bleeding (principal); I63.9 Cerebral infarction, unspecified; I69.320 Aphasia following cerebral infarction; I65.23 Occlusion and stenosis of bilateral carotid arteries; E78.5 Hyperlipidemia, unspecified; I10 Essential (primary) hypertension; E11.9 Type 2 diabetes mellitus without complications; E06.9 Thyroiditis, unspecified; I48.91 Unspecified atrial fibrillation; Z79.84 Long term (current) use of oral hypoglycemic drugs; Z79.02 Long term (current) use of antithrombotics/antiplatelets; Z79.899 Other long term (current) drug therapy; Z87.891 Personal history of nicotine dependence
CPT/HCPCS: 43239; 82962; 88305; J7120

== ENCOUNTER → 2018-05-16 08:49 | Outpatient (CLI) | payer MEDICARE, SELFPAY ==
[2018-04-10 10:54] VITALS: BMI 25.9
--- NOTE | 2018-04-26 09:02 | HP.PCM_ITS ---
History and Physical Date of Admission: 04/30/18 HISTORY AND PHYSICAL ? Bradley Ashton 1935 ? REFERRING PHYSICIAN: ??Kane Light MD ? CHIEF COMPLAINT: ??Post Op ? HPI: Bradley is a 82 year old male with a complaint of?left and right?upper quadrant pain.?? ? The patient is a 82 year old male referred last year for left upper quadrant pain. ?I initially saw the patient in May 2017. ?The patient notes pain in his left upper quadrant region. ?The pain is worse with moving or stretching. ?The pain is not affected by eating. ?He denies nausea or vomiting. ?He denies hematochezia or melena. ?He was given stool softeners when following CT imaging, it was felt he had significant fecal loading, which didn't really seem to change his symptoms. ?His caregivers note that may be hasn't discomfort improved somewhat when he decreased his metformin dose. ? He underwent CT scan of the abdomen and pelvis at [facility] which demonstrated no obstructions or abnormalities specifically in the left upper quadrant. ? The patient had a CVA for which he was transferred for care to [facility] from [facility] on February 23, 2017. ?His motor function is intact, but he has significant aphasia. ?He had a previous history of a left carotid endarterectomy performed by Dr. Martini in 2011. ? He was given a prescription for Prilosec, but he is not regularly taking it. ?He is currently on Eliquis. ?He has not had upper endoscopy. ?He is likely not had lower endoscopy. ? We postponed endoscopy at that time due to the fact that he had had a recent CVA. ? Over the last year, the patient is still struggled with his expressive aphasia. ?He is noting however more symptomatic upper abdominal complaints. ?He notes them to be vacation in both left and right upper quadrants. ?He has difficulty expressing whether this occurs after meals. ? ? Dr. Argueta ordered right upper quadrant ultrasound which demonstrated no specific abnormalities. ?Hiatus scan with ejection fraction was ordered next. ?This demonstrated a very low ejection fraction of less than 3%. ?This however could not necessarily reproduce the patient's symptoms. ? The patient is being seen by me today at the request of Dr. Tala Argueta MD for my opinion and advice regarding left upper quadrant pain. ? Given the patient's difficulties with communication and the above findings we elected to perform upper endoscopy primarily. ?This was performed on every 2018. ?The patient was found to have mild to moderate duodenal irritation, mild chronic gastric irritation and very mild distal esophageal irritation. ?Biopsy findings returned as: ? Antral biopsy: ?A fragment of squamous epithelium with mild chronic inflammation. ?Gastric mucosa is not identified in the submitted specimen. ? The patient was started on proton pump inhibitors. ?He noted no improvement in his symptoms. ? The patient is being seen by me today at the request of Dr.?Tala Argueta MD?for my opinion and advice regarding her abdominal complaints. ? ? SIGNIFICANT MEDICAL PROBLEMS:? PAST?MEDICAL?HISTORY PAST MEDICAL HISTORY Diagnosis Date ? Aphagia ? ? Carotid artery stenosis ? ? Intracranial carotid stenosis, bilateral 02/24/2017 ? Other and unspecified hyperlipidemia ? ? Stroke (HCC) 02/2017 ? Unspecified essential hypertension ? ? ? OPERATIONS:? PAST?SURGICAL?HISTORY PAST SURGICAL HISTORY Procedure Laterality Date ? HERNIA REPAIR W/MESH ? ? ? Bilateral inguinal ? ? CURRENT MEDICATIONS:? CURRENT?MEDICATIONS Current Outpatient Medications: omeprazole (PRILOSEC) 20 mg capsule Take 2 capsules by mouth once daily. Disp: 60 capsule Rfl: 3 glipiZIDE (GLUCOTROL XL) 2.5 mg 24 hr tablet once daily. Disp: Rfl: 5 aspirin, enteric coated (ASPIRIN, ENTERIC COATED) 81 mg EC tablet Take 81 mg by mouth once daily. Disp: Rfl: metFORMIN (GLUCOPHAGE) 500 mg tablet Take 500 mg by mouth twice daily. Disp: Rfl: 2 omeprazole (PRILOSEC) 20 mg capsule Take 2 capsules by mouth once daily. Disp: 60 capsule Rfl: 0 atorvastatin (LIPITOR) 80 mg tablet Take 1 tablet by mouth daily at bedtime. Disp: 30 tablet Rfl: 3 olmesartan (BENICAR) 5 mg tablet Take 1 tablet by mouth once daily. Disp: 30 tablet Rfl: 3 COMPOUNDED PRESCRIPTION Rx: Shower ChairDiagnosis: L Middle Cerebral Artery Stroke Disp: 1 Device Rfl: 0 COMPOUNDED PRESCRIPTION Blood Pressure Cuff and ReaderDiagnosis: HTN and Stroke Disp: 1 Device Rfl: 0 sitaGLIPtin (JANUVIA) 50 mg tablet Take 1 tablet by mouth once daily. Disp: 30 tablet Rfl: 3 levothyroxine (SYNTHROID) 25 mcg tablet Take 1 tablet by mouth once daily. Disp: 30 tablet Rfl: 3 blood sugar diagnostic (CONTOUR NEXT STRIPS) test strip Use as instructed Disp: 50 Strip Rfl: 11 Lancets (MICROLET LANCET) lancets Use as instructed Disp: 50 Each Rfl: 11 apixaban (ELIQUIS) 5 mg tab tab(s) Take 1 tablet by mouth twice daily. Disp: 60 tablet Rfl: 11 polyethylene glycol 3350 17 gram packet Take 1 Packet by mouth once daily as needed. Disp: 20 Packet Rfl: 0 [place]-3 Fatty Acids, FISH OIL, (FISH OIL) 360-1,200 mg Cap Take 1 capsule by mouth once daily. Patient takes 5 capsules per day. Disp: Rfl: ? No current facility-administered medications for this visit.? ? ALLERGIES:?Penicillins ? PERSONAL HISTORY:? SOCIAL?HISTORY Social History ??Socioeconomic History ?Marital status: ?Spouse name: Not on file ?Number of children: Not on file ?Years of education: Not on file ?Highest education level: Not on file ??Social Needs ?Financial resource strain: Not on file ?Food insecurity - worry: Not on file ?Food insecurity - inability: Not on file ?Transportation needs - medical: Not on file ?Transportation needs - non-medical: Not on file ??Occupational History ?Not on file ??Tobacco Use ?Smoking status: Former Smoker ?Quit date: 08/27/1991 ?Years since quittin.6 ?Smokeless tobacco: Never Used ??Substance and Sexual Activity ?Alcohol use: Yes ?Comment: rare ?Drug use: No ?Sexual activity: Not on file ??Other Topics ?Concerns: ?Not on file ??Social History Narrative ?Not on file ? FAMILY HISTORY:? FAMILY?HISTORY FAMILY HISTORY Problem Relation Age of Onset ? other (Emphysema, hypoglycemia) Father ? age 69 ? other (ALS) Mother ? age 84 ? other (DM1) Sister ?alive age 71 ? other (DM 2) Brother ? age 83 ? other (Heart - sudden ) Sister ? age 60s ? other (congenital heart condition. Sudden ) Sister ? age 30s ? other (influenza) Brother ? age 30s ? other (Hypoglycemia) Sister ?alive age 79 ? REVIEW OF SYMPTOMS: ??The review of systems data was entered by the nurse and reviewed by me ? There are no exam notes on file for this visit. ? ? PHYSICAL EXAMINATION: ? General: ?The patient is 82 year old male, well nourished, well hydrated in no acute distress. ?The patient is oriented to time, place, and person. ? VITALS:??There were no vitals taken for this visit.??There is no height or weight on file to calculate BMI.? ? HEENT: ?Normal cephalic, ataumatic, pupils are equally round, sclera are anicteric, mucous membranes are moist, oropharynx is clear. ?Neck has no masses, asymmetry or lymphadenopathy. ?Thyroid is unremarkable. ? Respiratory: ?Clear to auscultation and percussion. ?Normal respiratory excursion and pattern. ? Cardiac: ?Examination is regular rate and rhythm. ? Abdominal exam: ?Normoactive bowel sounds, Soft, tender in the right upper quadrant negative Berumen's sign,??with no palpable masses. ?No hepatosplenomegaly. ?No palpable hernias. ? Rectal exam:?exam deferred ? Extremities: ?no clubbing, cyanosis or edema. ?No adenopathy. ? Other: ? LABORATORY VALUES: As Noted ? RADIOLOGIC STUDIES: ?As Noted Above ? Assessment ? IMPRESSION:?RUQ Pain, Biliary Dyskinesia ? PLAN: ??My plan is to perform a laparoscopic cholecystectomy with intraoperative choleangiogram. ??The planned surgical procedure was discussed extensively with the patient. ?The risks, benefits, anticipated outcomes and possible complications were mentioned. ?My staff has also explained the procedure in understandable terms and the patient was given the option to take printed material concerning the planned procedure. ?The patient had the opportunity to ask questions concerning the planned procedure. ?The patient freely consents to the planned procedure. ? I would plan to hold his Eliquis for 5 days preoperatively and have him continue on aspirin. ?I will contact Dr. Aggarwal's office to assure that he is comfortable with this plan and to assure that he is felt to be appropriate cardiac risk for general anesthetic and cholecystectomy ? Planned Procedure:?LAPAROSCOPIC CHOLECYSTECTOMY WITH INTRAOPERATIVE CHOLEANGIOGRAM - [id number] ? Planned antibiotic:?clindamycin 900mg IVPB monotype keyboard operator to OR ? SCDs needed -?Yes ? City Engineer Needed -?Yes ? Diagnoses:?(R10.12) LUQ pain ?(primary encounter diagnosis) ? ? A letter was sent to DrAditya?Tala Argueta MD?indicating the above finding for this patient. ? Kane Light MD
--- NOTE | 2018-04-29 12:23 | EKG12_ITS ---
Test Reason : PRE OP Blood Pressure : / mmHG Vent. Rate : 134 BPM Atrial Rate : 192 BPM P-R Int : 000 ms QRS Dur : 086 ms QT Int : 326 ms P-R-T Axes : 000 092 128 degrees QTc Int : 486 ms Atrial fibrillation with rapid ventricular response Rightward axis Anterior infarct , age undetermined Abnormal ECG Confirmed by JUAN ALBERTO DAVIDSON, CELESTE ([id number]), manager editorial WINSTON LOPEZ ([id number]) on 04/30/2018 8:58:41 AM Referred By: Kane Light Confirmed By:CELESTE AVENDANO MD
[2018-04-29 13:31] LABS: Anion Gap 7 (5-15); BUN 29 mg/dL (7-18); Calcium,Total 9.3 mg/dL (8.5-10.1); Chloride 108 mmol/L (98-107); Creatinine, Serum 1.71 mg/dL (0.70-1.30); EST Glomerular Filtration Rate 41 mL/min (>60); Est Glom Filt Rate - Afr Amer 49 mL/min (>60); Glucose 214 mg/dL (74-106); Potassium 4.8 mmol/L (3.5-5.1); Sodium Level 141 mmol/L (136-145); Thyroid Stim Hormone (TSH) 6.86 uIU/mL (0.358-3.74)
[2018-04-29 14:04] LABS: Hemoglobin A1c 9.9 % (4.2-6.3)
== END ==
LOC: SDC 08:50
PROVIDERS: Family Provider Internal Medicine; PCP Internal Medicine; Referring Provider Surgery; Visit Provider Surgery
DX: Z01.818 Encounter for other preprocedural examination (principal); I10 Essential (primary) hypertension; E11.9 Type 2 diabetes mellitus without complications
CPT/HCPCS: 36415; 80048; 83036; 84443; 93005

== ENCOUNTER 2018-05-19 10:04 | Day surgery (SDC) | payer MEDICARE, SELFPAY ==
[2018-04-10 10:54] VITALS: BMI 25.9
--- NOTE | 2018-05-17 07:53 | HP.PCM_ITS ---
History and Physical Date of Admission: 05/19/18 HISTORY AND PHYSICAL ? Bradley Ashton 1935 ? REFERRING PHYSICIAN: ??Kane Light MD ? CHIEF COMPLAINT: ??Post Op ? HPI: Bradley is a 82 year old male with a complaint of?left and right?upper quadrant pain.?? ? The patient is a 82 year old male referred last year for left upper quadrant pain. ?I initially saw the patient in May 2017. ?The patient notes pain in his left upper quadrant region. ?The pain is worse with moving or stretching. ?The pain is not affected by eating. ?He denies nausea or vomiting. ?He denies hematochezia or melena. ?He was given stool softeners when following CT imaging, it was felt he had significant fecal loading, which didn't really seem to change his symptoms. ?His caregivers note that may be hasn't discomfort improved somewhat when he decreased his metformin dose. ? He underwent CT scan of the abdomen and pelvis at [facility] which demonstrated no obstructions or abnormalities specifically in the left upper quadrant. ? The patient had a CVA for which he was transferred for care to [facility] from [facility] on February 23, 2017. ?His motor function is intact, but he has significant aphasia. ?He had a previous history of a left carotid endarterectomy performed by Dr. Martini in 2011. ? He was given a prescription for Prilosec, but he is not regularly taking it. ?He is currently on Eliquis. ?He has not had upper endoscopy. ?He is likely not had lower endoscopy. ? We postponed endoscopy at that time due to the fact that he had had a recent CVA. ? Over the last year, the patient is still struggled with his expressive aphasia. ?He is noting however more symptomatic upper abdominal complaints. ?He notes them to be vacation in both left and right upper quadrants. ?He has difficulty expressing whether this occurs after meals. ? ? Dr. Argueta ordered right upper quadrant ultrasound which demonstrated no specific abnormalities. ?Hiatus scan with ejection fraction was ordered next. ?This demonstrated a very low ejection fraction of less than 3%. ?This however could not necessarily reproduce the patient's symptoms. ? The patient is being seen by me today at the request of Dr. Tala Argueta MD for my opinion and advice regarding left upper quadrant pain. ? Given the patient's difficulties with communication and the above findings we elected to perform upper endoscopy primarily. ?This was performed on every 2018. ?The patient was found to have mild to moderate duodenal irritation, mild chronic gastric irritation and very mild distal esophageal irritation. ?Biopsy findings returned as: ? Antral biopsy: ?A fragment of squamous epithelium with mild chronic inflammation. ?Gastric mucosa is not identified in the submitted specimen. ? The patient was started on proton pump inhibitors. ?He noted no improvement in his symptoms. ? The patient is being seen by me today at the request of Dr.?Tala Argueta MD?for my opinion and advice regarding her abdominal complaints. ? ? SIGNIFICANT MEDICAL PROBLEMS:? PAST?MEDICAL?HISTORY PAST MEDICAL HISTORY Diagnosis Date ? Aphagia ? ? Carotid artery stenosis ? ? Intracranial carotid stenosis, bilateral 02/24/2017 ? Other and unspecified hyperlipidemia ? ? Stroke (HCC) 02/2017 ? Unspecified essential hypertension ? ? ? OPERATIONS:? PAST?SURGICAL?HISTORY PAST SURGICAL HISTORY Procedure Laterality Date ? HERNIA REPAIR W/MESH ? ? ? Bilateral inguinal ? ? CURRENT MEDICATIONS:? CURRENT?MEDICATIONS Current Outpatient Medications: omeprazole (PRILOSEC) 20 mg capsule Take 2 capsules by mouth once daily. Disp: 60 capsule Rfl: 3 glipiZIDE (GLUCOTROL XL) 2.5 mg 24 hr tablet once daily. Disp: Rfl: 5 aspirin, enteric coated (ASPIRIN, ENTERIC COATED) 81 mg EC tablet Take 81 mg by mouth once daily. Disp: Rfl: metFORMIN (GLUCOPHAGE) 500 mg tablet Take 500 mg by mouth twice daily. Disp: Rfl: 2 omeprazole (PRILOSEC) 20 mg capsule Take 2 capsules by mouth once daily. Disp: 60 capsule Rfl: 0 atorvastatin (LIPITOR) 80 mg tablet Take 1 tablet by mouth daily at bedtime. Disp: 30 tablet Rfl: 3 olmesartan (BENICAR) 5 mg tablet Take 1 tablet by mouth once daily. Disp: 30 tablet Rfl: 3 COMPOUNDED PRESCRIPTION Rx: Shower ChairDiagnosis: L Middle Cerebral Artery Stroke Disp: 1 Device Rfl: 0 COMPOUNDED PRESCRIPTION Blood Pressure Cuff and ReaderDiagnosis: HTN and Stroke Disp: 1 Device Rfl: 0 sitaGLIPtin (JANUVIA) 50 mg tablet Take 1 tablet by mouth once daily. Disp: 30 tablet Rfl: 3 levothyroxine (SYNTHROID) 25 mcg tablet Take 1 tablet by mouth once daily. Disp: 30 tablet Rfl: 3 blood sugar diagnostic (CONTOUR NEXT STRIPS) test strip Use as instructed Disp: 50 Strip Rfl: 11 Lancets (MICROLET LANCET) lancets Use as instructed Disp: 50 Each Rfl: 11 apixaban (ELIQUIS) 5 mg tab tab(s) Take 1 tablet by mouth twice daily. Disp: 60 tablet Rfl: 11 polyethylene glycol 3350 17 gram packet Take 1 Packet by mouth once daily as needed. Disp: 20 Packet Rfl: 0 [place]-3 Fatty Acids, FISH OIL, (FISH OIL) 360-1,200 mg Cap Take 1 capsule by mouth once daily. Patient takes 5 capsules per day. Disp: Rfl: ? No current facility-administered medications for this visit.? ? ALLERGIES:?Penicillins ? PERSONAL HISTORY:? SOCIAL?HISTORY Social History ??Socioeconomic History ?Marital status: ?Spouse name: Not on file ?Number of children: Not on file ?Years of education: Not on file ?Highest education level: Not on file ??Social Needs ?Financial resource strain: Not on file ?Food insecurity - worry: Not on file ?Food insecurity - inability: Not on file ?Transportation needs - medical: Not on file ?Transportation needs - non-medical: Not on file ??Occupational History ?Not on file ??Tobacco Use ?Smoking status: Former Smoker ?Quit date: 08/27/1991 ?Years since quittin.6 ?Smokeless tobacco: Never Used ??Substance and Sexual Activity ?Alcohol use: Yes ?Comment: rare ?Drug use: No ?Sexual activity: Not on file ??Other Topics ?Concerns: ?Not on file ??Social History Narrative ?Not on file ? FAMILY HISTORY:? FAMILY?HISTORY FAMILY HISTORY Problem Relation Age of Onset ? other (Emphysema, hypoglycemia) Father ? age 69 ? other (ALS) Mother ? age 84 ? other (DM1) Sister ?alive age 71 ? other (DM 2) Brother ? age 83 ? other (Heart - sudden ) Sister ? age 60s ? other (congenital heart condition. Sudden ) Sister ? age 30s ? other (influenza) Brother ? age 30s ? other (Hypoglycemia) Sister ?alive age 79 ? REVIEW OF SYMPTOMS: ??The review of systems data was entered by the nurse and reviewed by me ? There are no exam notes on file for this visit. ? ? PHYSICAL EXAMINATION: ? General: ?The patient is 82 year old male, well nourished, well hydrated in no acute distress. ?The patient is oriented to time, place, and person. ? VITALS:??There were no vitals taken for this visit.??There is no height or weight on file to calculate BMI.? ? HEENT: ?Normal cephalic, ataumatic, pupils are equally round, sclera are anicteric, mucous membranes are moist, oropharynx is clear. ?Neck has no masses, asymmetry or lymphadenopathy. ?Thyroid is unremarkable. ? Respiratory: ?Clear to auscultation and percussion. ?Normal respiratory excursion and pattern. ? Cardiac: ?Examination is regular rate and rhythm. ? Abdominal exam: ?Normoactive bowel sounds, Soft, tender in the right upper quadrant negative Berumen's sign,??with no palpable masses. ?No hepatosplenomegaly. ?No palpable hernias. ? Rectal exam:?exam deferred ? Extremities: ?no clubbing, cyanosis or edema. ?No adenopathy. ? Other: ? LABORATORY VALUES: As Noted ? RADIOLOGIC STUDIES: ?As Noted Above ? Assessment ? IMPRESSION:?RUQ Pain, Biliary Dyskinesia ? PLAN: ??My plan is to perform a laparoscopic cholecystectomy with intraoperative choleangiogram. ??The planned surgical procedure was discussed extensively with the patient. ?The risks, benefits, anticipated outcomes and possible complications were mentioned. ?My staff has also explained the procedure in understandable terms and the patient was given the option to take printed material concerning the planned procedure. ?The patient had the opportunity to ask questions concerning the planned procedure. ?The patient freely consents to the planned procedure. ? I would plan to hold his Eliquis for 5 days preoperatively and have him continue on aspirin. ?I will contact Dr. Aggarwal's office to assure that he is comfortable with this plan and to assure that he is felt to be appropriate cardiac risk for general anesthetic and cholecystectomy ? Planned Procedure:?LAPAROSCOPIC CHOLECYSTECTOMY WITH INTRAOPERATIVE CHOLEANGIOGRAM - 12569-713 ? Planned antibiotic:?clindamycin 900mg IVPB acquisitions editor to OR ? SCDs needed -?Yes ? Constitutional Law Professor Needed -?Yes ? Diagnoses:?(R10.12) LUQ pain ?(primary encounter diagnosis) ? ? A letter was sent to DrAditya?Tala Argueta MD?indicating the above finding for this patient. ? Kane Light MD
[2018-05-19] VITALS (12 sets, daily range): BP systolic 126–156; BP diastolic 83–106; PULSE 72–122; RESP 12–20; TEMP 35.7–37.2; O2SAT 95–100; BMI 25.9
[2018-05-19 11:20] LABS: Bedside Glucose 153 mg/dL (70-110)
--- NOTE | 2018-05-19 11:30 | GALL_PTH ---
PATIENT: SILVESTRE BARTH LOC: [facility] U#:[id number] AGE/SX: 83/M ROOM: RE05/19/[address]: Dr. Kane Light MD : 1935 BED: DIS: 05/20/2018 SPEC #: [id number] RECD: 05/19/18 16:25 STATUS: MEGAN BELKIS #: [id number] RANJEET: 05/19/18 11:[address]: Kane Light DEPT: SURGICAL PATHOLOGY RECD BY: Jesus Hurt ENTERED: 05/20/18 11:28 SP TYPE: ILYA BRUNER DR: Dr. Tala Argueta MD Tissues: Gallbladder, NOS Procedures: Surgery Specimen Level III HEADER OPERATION: Laparoscopic cholecystectomy with IOC PRE-OP DIAGNOSIS: Biliary dyskinesia TISSUE SUBMITTED: Gallbladder MICROSCOPIC DIAGNOSIS Gallbladder, cholecystectomy: Chronic cholecystitis. AM:shakir 05/21/18 MICROSCOPIC DESCRIPTION Slides are reviewed. GROSS DESCRIPTION Received is one container labeled with the patient's name and designated gallbladder. The specimen consists of a gallbladder measuring 11 cm in length and 4 cm in diameter. The external surface is pink-brady, smooth and glistening for the most part. Focally it is granular, hemorrhagic and contains cautery artifact. The gallbladder contains green-yellow mucoid bile. No stones are identified in the container or in the gallbladder. The mucosa is bile-stained and without any mass lesions. The gallbladder wall measures 0.1 cm in thickness. Occ Therapy Asst sections from the gallbladder and the cystic duct are submitted in one cassette. / SJ:rg 05/20/18 TC:3 CPT: 53065
--- NOTE | 2018-05-19 11:30 | RAD_ITS ---
CLINICAL HISTORY: Male, 83 years old. Laparoscopic cholecystectomy. PROCEDURE: CHOLANGIOGRAM - intraoperative FLUOROSCOPY TIME (if supplied): (0:29) minutes/seconds TECHNIQUE: (All elements of maximal sterile barrier technique followed, including US elements as applicable) And intraoperative cardiogram was performed by the surgeon. Imaging was submitted. The common bile duct is not dilated. No intraluminal filling defect is seen. There is free flow of contrast into the duodenum. RAD/Cholangiogram/ O R,Initial IMPRESSION: Unremarkable intraoperative cholangiogram. Electronically Signed: Deshawn Givens, at 11:08 EDT , Service support ,
[2018-05-19] MEDS: Bupivacaine Mpf 0.5% 30 ML VIAL (13:08)
--- NOTE | 2018-05-19 13:11 | PCM.OPRPT ---
Report of Operation Date of Procedure: 05/19/18 Pre-Operative Diagnosis: RUQ pain Post-Operative Diagnosis: RUQ pain, adhesions to gallbladder, inflammation Surgery/Procedure Performed:: laparoscopic cholecystectomy with intraoperative cholangiogram Description of Surgical Findings:: normal IOC forming machine upkeep mechanic helper: Apolonia Lundy Type of Anesthesia:: General Anesthesiologist: Alfonso Rodríguez - ASA3 Specimen's removed: gallbladder Estimated Blood Loss (mL): 25 Fluids Replaced: 600 Description of Procedure: The patient was brought to the operating suite. Sign in was performed verifying patient, site, position, SCIP antibiotic prophylaxis- clindamycin-600 mg and DVT prophylaxis with SCDs. Following induction of general anesthetic. The patient?s abdomen was prepped and draped in the usual fashion. Timeout was performed verifying patient, site, position. Local anesthetic was injected below the umbilicus. Incision made and dissection carried down to the umbilical root fascia. 2 stay sutures were placed. Incision made in the fascia, the peritoneum entered under direct visualization. A 10 mm Daniels trocar was inserted and secured with the stay sutures. Pneumoperitoneum to 15 mmHg was insufflated. Visual inspection revealed adhesions of the omentum to the right upper quadrant. 3 right upper quadrant 5 ports were placed in the standard position. the adhesions of the right upper quadrant were taken down sharply. The gallbladder was grasped retracted upward and outward. there were multiple adhesions of the transverse mesocolon and omentum to the gallbladder. These were taken down bluntly and sharply. Dissection was carried out in Calot?s triangle. When a critical view of the neck of the gallbladder funneling of the cystic duct with no signs of aberrant ductal structures were seen, a clip was placed on the neck of the gallbladder cystic duct junction. A partial ductotomy was made. A Cholangiocath was inserted into the duct and secured with a clip. Intraoperative cholangiogram was performed demonstrating filling of the cystic duct filling the common bile duct and emptying into the duodenum without signs of obstruction area and the clip and catheter were removed. 2 clips placed on the cystic duct and the cystic duct divided. Dissection was continued until the cystic artery was clearly dissected and identified. The artery was then doubly clipped proximally singly clipped distally and divided. The gallbladder was then dissected free from the gallbladder fossa using electrocautery. The gallbladder was placed in an Endobag and removed through the umbilical port site. An 0 PDS [id number] suture was placed around the umbilical port site defect. Pneumoperitoneum was reestablished. The gallbladder fossa was checked for hemostasis. With good hemostasis, the area was irrigated and aspirated to clear. 5mm ports were removed under direct visualization with no signs of bleeding. Pneumoperitoneum was released. The Daniels trocar was removed. The umbilical fascial suture was secured area did skin was closed with interrupted 4-0 Monocryl subcuticular sutures. Steri-Strips and bandages were applied. The patient was brought to recovery room in stable condition.
[2018-05-19 13:50] LABS: Bedside Glucose 130 mg/dL (70-110)
[2018-05-19] MEDS: Ensure Clear 120 ML Liquid PO ×2 (18:07→21:01)
[2018-05-19] MEDS: Lactated Ringers 1,000 ML 80 ML IV (18:07)
[2018-05-19] MEDS: Metoprolol(XL)Succ 50 MG Tablet PO (21:00)
[2018-05-19] MEDS: oxyCODONE 5 MG Tablet PO (21:00)
[2018-05-19] MEDS: Atorvastatin Calcium 80 MG Tablet PO (21:01)
[2018-05-19] MEDS: APIXABAN 5 MG TABLET PO (21:01)
[2018-05-20 03:55] VITALS: BP 126/84; PULSE 78; RESP 20; TEMP 36.8; O2SAT 93
[2018-05-20] MEDS: Levothyroxine 50 MCG Tablet PO (05:23)
[2018-05-20 05:37] LABS: Absolute Lymphocyte Count 1.48 X10^3/ul (0.83-4.51); Absolute Neutrophil Count 8.3 X10^3/uL (2.0-7.7); Basophil# 0.01 X10^3/uL; Basophil% 0.1 % (0-1); Hematocrit 42.8 % (40-54); Hemoglobin 14.2 g/dl (13.0-16.5); Lymphocyte # 1.48 X10^3/ul (4.0); Lymphocyte % 13.9 % (19-41); Mean Corp Hgb Conc 33.2 g/gl (32-36); Mean Corpuscular Hgb 30.3 pg (27.0-32.0); Mean Corpuscular Volume 91.3 fL (80-94); Mean Platelet Vol. 11.4 fl (6.2-12.0); Monocyte# 0.86 X10^3/uL; Monocyte% 8.1 % (0-10); Neutrophil % 77.7 % (47-70); Platelet Count 248 K/mm3 (150-450); RBC Distribution Width CV 15.9 % (11.6-14.6); RBC Distribution Width SD 51.7 fl (35.1-43.9); Red Blood Count 4.69 M/mm3 (4.6-6.2); White Blood Count 10.7 K/mm3 (4.4-11.0)
[2018-05-20 05:44] LABS: POSITIVE COUNT NO; POSITIVE DIFFERENTIAL NO; POSITIVE MORPHOLOGY NO
[2018-05-20 05:58] LABS: ALB/GLOB Ratio 0.9 RATIO (0.9-2.4); AST(SGOT) 191 U/L (15-37); Alanine Aminotransfer ALT/SGPT 55 U/L (16-61); Albumin, Serum 3.2 g/dL (3.2-5.0); Alkaline Phosphatase 90 U/L (45-117); Anion Gap 9 (5-15); BUN 38 mg/dL (7-18); Calcium,Total 8.7 mg/dL (8.5-10.1); Chloride 107 mmol/L (98-107); EST Glomerular Filtration Rate 34 mL/min (>60); Est Glom Filt Rate - Afr Amer 41 mL/min (>60); Estimated Creatinine Clearance 28.39 ml/min; Globulin 3.5 g/dL (2.2-4.2); Glucose 295 mg/dL (74-106); Potassium 5.2 mmol/L (3.5-5.1); Protein, Total 6.7 g/dL (6.4-8.2); Sodium Level 138 mmol/L (136-145)
[2018-05-20] MEDS: Lactated Ringers 1,000 ML 80 ML IV (06:14)
[2018-05-20] MEDS: Tamsulosin HCl 0.4 MG Capsule PO (06:14)
[2018-05-20 07:03] LABS: Magnesium 2.1 mg/dL (1.6-2.6); Phosphorus 4.5 mg/dL (2.5-4.9)
--- NOTE | 2018-05-20 08:09 | PCM.CODE.SUM ---
Code Blue Report Responded to CODE BLUE paged overhead this morning. On arrival, chest compressions were in process. ACLS was initiated. The patient was found to be in asystole upon pulse check. At one point during the patient's code, he was noted to be in pulseless V. tach, for which he received a 200J shock. Following multiple rounds of epinephrine along with bicarbonate and D50, the patient remained in asystole. The patient was successfully intubated during the code. The patient's family was contacted and updated. Following approximately 22 minutes of resuscitative efforts, ACLS was terminated. Asystole was again noted on the monitor. No spontaneous respirations were noted. Time of was declared. Dr. Light was made aware. - Physical Exam Vital Signs Temp Pulse Resp BP Pulse Ox 36.8 C 78 20 H 126/84 H 93 05/20/18 03:55 05/20/18 03:55 05/20/18 03:55 05/20/18 03:55 05/20/18 03:55 Oxygen Flow Rate (L/min) 1 Oxygen Delivery Method Nasal Cannula Weight: 180 lb 8.937 oz Body Mass Index (BMI) 25.9 Finger Stick Blood Glucose 130 Intake and Output for Last 24 Hours 05/18/18 05/19/18 05/20/18 23:59 23:59 23:59 Intake Total 1821 / 1821 1200 / 1200 Output Total 500 / 500 Balance 1821 / 1821 700 / 700 Laboratory Tests Past 24 Hrs 05/20/18 05/20/18 05/20/18 05:10 05:10 05:10 WBC 10.7 RBC 4.69 Hgb 14.2 Hct 42.8 MCV 91.3 MCH 30.3 MCHC 33.2 RDW 15.9 H RDW Differential 51.7 H Plt Count 248 MPV 11.4 Immature Gran % (Auto) 0.200 Neut % (Auto) 77.7 H Lymph % (Auto) 13.9 L Long % (Auto) 8.1 Eos % (Auto) 0.0 Baso % (Auto) 0.1 Absolute Neuts (auto) 8.3 H Absolute Lymphs (auto) 1.48 Total Counted Not Reportable Sodium 138 Potassium 5.2 H Chloride 107 Carbon Dioxide 22.0 Anion Gap 9 BUN 38 H Creatinine 2.00 H Estim Creat Clear Calc 28.39 Est GFR (MDRD) Af Amer 41 L Est GFR (MDRD) Non-Af 34 L BUN/Creatinine Ratio 19.0 Glucose 295 H Calcium 8.7 Phosphorus 4.5 Magnesium 2.1 Total Bilirubin 1.70 H AST 191 H ALT 55 Alkaline Phosphatase 90 Total Protein 6.7 Albumin 3.2 Globulin 3.5 Albumin/Globulin Ratio 0.9 POC Glucose 05/19/18 05/19/18 13:45 10:41 POC Glucose 130 H 153 H Assessment/Plan All Active Problems (Last Updated 11/25/17 @ 09:18 by Vazquez Brock, SENIOR MARKETING DATA ANALYST-C) Aphasia (Acute) Uncontrolled type 2 diabetes mellitus, without long-term current use of insulin (Acute)
--- NOTE | 2018-05-20 08:15 | CB_ITS ---
Code Blue Report Responded to CODE BLUE paged overhead this morning. On arrival, chest compressions were in process. ACLS was initiated. The patient was found to be in asystole upon pulse check. At one point during the patient's code, he was noted to be in pulseless V. tach, for which he received a 200J shock. Following multiple rounds of epinephrine along with bicarbonate and D50, the patient remained in asystole. The patient was successfully intubated during the code. The patient's family was contacted and updated. Following approximately 22 mi nutes of resuscitative efforts, ACLS was terminated. Asystole was again noted on the monitor. No spontaneous respirations were noted. Time of was declared. Dr. Light was made aware. - Physical Exam Vital Signs Temp Pulse Resp BP Pulse Ox 36.8 C 78 20 H 126/84 H 93 05/20/18 03:55 05/20/18 03:55 05/20/18 03:55 05/20/18 03:55 05/20/18 03:55 Oxygen Flow Rate (L/min) 1 Oxygen Delivery Method Nasal Cannula Weight: 180 lb 8.937 oz Body Mass Index (BMI) 25.9 Finger Stick Blood Glucose 130 Intake and Output for Last 24 Hours 05/18/18 05/19/18 05/20/18 23:59 23:59 23:59 Intake Total 1821 / 1821 1200 / 1200 Output Total 500 / 500 Balance 1821 / 1821 700 / 700 Laboratory Tests Past 24 Hrs 05/20/18 05/20/18 05/20/18 05:10 05:10 05:10 WBC 10.7 RBC 4.69 Hgb 14.2 Hct 42.8 MCV 91.3 MCH 30.3 MCHC 33.2 RDW 15.9 H RDW Differential 51.7 H Plt Count 248 MPV 11.4 Immature Gran % (Auto) 0.200 Neut % (Auto) 77.7 H Lymph % (Auto) 13.9 L [place] % (Auto) 8.1 Eos % (Auto) 0.0 Baso % (Auto) 0.1 Absolute Neuts (auto) 8.3 H Absolute Lymphs (auto) 1.48 Total Counted Not Reportable Sodium 138 Potassium 5.2 H Chloride 107 Carbon Dioxide 22.0 Anion Gap 9 BUN 38 H Creatinine 2.00 H Estim Creat Clear Calc 28.39 Est GFR (MDRD) Af Amer 41 L Est GFR (MDRD) Non-Af 34 L BUN/Creatinine Ratio 19.0 Glucose 295 H Calcium 8.7 Phosphorus 4.5 Magnesium 2.1 Total Bilirubin 1.70 H AST 191 H ALT 55 Alkaline Phosphatase 90 Total Protein 6.7 Albumin 3.2 Globulin 3.5 Albumin/Globulin Ratio 0.9 POC Glucose 05/19/18 05/19/18 13:45 10:41 POC Glucose 130 H 153 H Assessment/Plan All Active Problems (Last Updated 11/25/17 @ 09:18 by Vazquez Brock, REEL FED PRINTER-C) Aphasia (Acute) Uncontrolled type 2 diabetes mellitus, without long-term current use of insulin (Acute)
--- NOTE | 2018-05-20 08:22 | EXP.PCM_ITS ---
Preliminary Cause of cardiac arrest Date of Admission: 05/19/18 Date of : 05/20/18 - 8:03 - Principle Diagnosis biliary colic, chronic cholecystitis, h/o CVA, history of CAD, A. Fib Problem List: Atypical chest pain (Chronic) Pure hypercholesterolemia (Chronic) Essential (primary) hypertension (Chronic) Non-rheumatic aortic regurgitation (Chronic) Paroxysmal atrial fibrillation (Chronic) Aphasia (Acute) Bilateral carotid artery stenosis (Chronic) CVA (cerebral vascular accident) (Chronic) Uncontrolled type 2 diabetes mellitus, without long-term current use of insulin (Acute) Acute kidney injury (Acute) Hypothyroidism (Acute) Obstructive sleep apnea (Chronic) Hospital Course The patient is a 82 year old male referred last year for left upper quadrant pain. ?I initially saw the patient in May 2017. ?The patient notes pain in his left upper quadrant region. ?The pain is worse with moving or stretching. ?The pain is not affected by eating. ?He denies nausea or vomiting. ?He denies he matochezia or melena. ?He was given stool softeners when following CT imaging, it was felt he had significant fecal loading, which didn't really seem to change his symptoms. ?His caregivers note that may be hasn't discomfort improved somewhat when he decreased his metformin dose. ? He underwent CT scan of the abdomen and pelvis at [facility] which demonstrated no obstructions or abnormalities specifically in the left upper quadrant. ? The patient had a CVA for which he was transferred for care to [facility] from [facility] on February 23, 2017. ?His motor function is intact, but he has significant aphasia. ?He had a previous history of a left carotid endarterectomy performed by Dr. Martini in 2011. ? He was given a prescription for Prilosec, but he is not regularly taking it. ?He is currently on Eliquis. ?He has not had upper endoscopy. ?He is likely not had lower endoscopy. ? We postponed endoscopy at that time due to the fact that he had had a recent CVA. ? Over the last year, the patient is still struggled with his expressive aphasia. ?He is noting however more symptomatic upper abdominal complaints. ?He notes them to be vacation in both left and right upper quadrants. ?He has difficulty expressing whether this occurs after meals. ? ? Dr. Kendall ordered right upper quadrant ultrasound which demonstrated no specific abnormalities. ?Hiatus scan with ejection fraction was ordered next. ?This demonstrated a very low ejection fraction of less than 3%. ?This however could not necessarily reproduce the patient's symptoms. ? Given the patient's difficulties with communication and the above findings we elected to perform upper endoscopy primarily. ?This was performed on every 2018. ?The patient was found to have mild to moderate duodenal irritation, mild chronic gastric irritation and very mild distal esophageal irritation. ?Biopsy findings returned as: ? Antral biopsy: ?A fragment of squamous epithelium with mild chronic inflammation. ?Gastric mucosa is not identified in the submitted specimen. ? The patient was started on proton pump inhibitors. ?He noted no improvement in his symptoms. He was admitted for laparoscopic cholecystectomy on May 19, 2018. At surgery, he was noted to have adhesions to the RUQ and adhesions to the gallbladder along with gallbladder edema. The surgical procedure was uneventful. the patient was seen at 6 AM on morning rounds on postoperative day 1. He was doing well at the time with mild incisional complaints and no other specific abnormalities. The patient was brought to the bathroom by nursing staff around 7 AM. Approximately 20 minutes later he was found unresponsive. Cardiopulmonary resuscitation was undertaken. Initial waveform was asystole. He was given multiple rounds of ACLS protocol but failed to have return of cardiac activity. The patient was pronounced at 8:03 AM. I was able to return to the hospital. The patient's family was contacted. I was present and discussed the course of events with multiple family members and was present with their Water Resource Engineering Specialist, Father Nima Tenorio ?
--- NOTE | 2018-05-20 08:30 | CASEMGMT ---
Social Work Note Pt had code blue and has . Pt's family present at [facility]. SW met with pt's family and spent much time offering emotional support to pt's family. Pt's family states that pt's son will be coming to [facility] to arrange arrangements but it is likely that pt will go to [facility] home. Pt had two other sons that are currently in [place]. Pt's family will be calling additional family members for pt. Elaine Almonte ASSOCIATE PROFESSOR OF MEDICINE, RAILROAD SIGNAL TECHNICIAN
--- NOTE | 2018-05-20 09:01 | NURSING ---
Odalys BERMEO and this RN was in this patient room at approx 0720. Assisted pt to walk to restroom with stand by assist. Pt returned to bed. I was called into room at 0740 by Nicolas BERMEO and found pt non responsive and called khris nova.
[2018-05-21 08:11] LABS: Bedside Glucose 274 mg/dL (70-110)
== END 2018-05-20 08:03 ==
LOC: SDC 10:08 → AC 10:08 → MS3 05-20 07:30
PROVIDERS: Family Provider Internal Medicine; PCP Internal Medicine; Referring Provider Surgery; Visit Provider Surgery
PROC: (CPT 47610; principal; 2018-05-19 11:10)
DX: K81.1 Chronic cholecystitis (principal); K82.8 Other specified diseases of gallbladder; I69.920 Aphasia following unspecified cerebrovascular disease; I63.9 Cerebral infarction, unspecified; Z79.02 Long term (current) use of antithrombotics/antiplatelets; I10 Essential (primary) hypertension; E78.5 Hyperlipidemia, unspecified; I65.29 Occlusion and stenosis of unspecified carotid artery; E11.9 Type 2 diabetes mellitus without complications; E06.9 Thyroiditis, unspecified; I25.5 Ischemic cardiomyopathy; Z79.82 Long term (current) use of aspirin; Z79.84 Long term (current) use of oral hypoglycemic drugs; Z79.899 Other long term (current) drug therapy; Z87.891 Personal history of nicotine dependence
CPT/HCPCS: 00790; 47563; 31500; 36415; 74300; 76000; 80053; 82962; 83735; 84100; 85025; 88304; 92950; J7030; J7120; J2405